=== PATIENT | male | born 1980 | race Hispanic/Latino ===

== ENCOUNTER 2020-05-02 11:52 | Inpatient (IN) | payer BC ==
[~2020-05-02] VITALS: Ht 175.3 cm; Wt 132.9 kg
--- OUTSIDE RECORDS SUMMARY | 2020-05-02 11:54 | XMS REPORT | Continuity of Care Document ---
Author Author FridgeVALENTINE Fridge Address Unknown Phone Unavailable Care Team Providers Care Antiquer Name Role Phone [employer] Unavailable Un available Problems Problem Status Onset Date Classification Date Reported Comments Source N/V ABD PAIN BYPASS HX MARCH 2011 Active 08/22/2012 [facility] Pain Active Problem 08/26/2012 [facility] History of - gastrointestinal tract by-p ass (context-dependent category) Active Prob bishop 06/08/2018 [facility] Medial epicondylitis of elbow joint (disorder) Active Problem 06/08/2018 [facility] Medications Medication Details Route Status Patient Instructions Ordering Provider Order Date Source Ibuprofen 0 Refill(s) Active 03/02/2018 [facility] heparin 5,000 unit, 1 mL, Rout e: SUB-Q, Drug form: INJ, Q12H, Dosing Weight 97.273, kg, Start date: 08/23/12 21:00:00, Duration: 30 day, Stop date: 09/22/12 9:00:00 SUB-Q No Longer Active Sana 08/24/2012 [facility] nter D5W 1/2NS + KCL 20mEq/L 1000ml (Premix) 1,000 mL 1,000 mL, Rate: 75 ml/hr, Infuse over: 13.3 hr, Route: IV, kg, Total Volume: 1,000, Start date: 08/23/12 17:00:00, Duration: 30 day, Stop date: 09/22/12 16:59:00 IV No Longer Active Sana [facility] Omnipaque 350mg/ml 150 mL, Rou te: IVP, Drug Form: SOLN, Dosing Weight 97.273, kg, ONCALL, STAT, Start date: 08/23/12 11:48:00, Duration: 1 doses or times, Dose = 2.2ml/kg, Max dose = 150mlDose = 2.2ml/kg, Max dose = 150ml IVP No Longer Active Samantha 08/23/2012 [facility] M.V.I. Adult 10 mL + Vitamin B1 100 mg + folic acid 1 mg + potassium chloride 20 mEq + Dextrose 5% 150 ml/hr, Route: IV, Daily, Start date: 08/23/12 6:00:00, Duration: 1 day, Stop date: 08/23/12 6:00:00 IV No Longer Active Samantha 08/23/2012 [facility] D5W 1/2NS + KCL 20mEq/L 1000ml (Premix) 1,000 mL 1,000 mL, Rate: 150 ml/hr, Infuse over: 6.7 hr, Route: IV, kg, Total Volume: 1,000, Start date: 08/23/12 2:40:00, Duration: 30 day, Stop date: 09/22/12 2:39:00 IV No Longer Active Sana [facility] Allergies, Adverse Reactions, Alerts Substance Category Reaction Severity Reaction type Status Date Reported Comments Source NKFA Assertion Drug allergy Active Medical Group Immunizations No Data Provided for This Section Results Order Name Results Value Reference Range Date Interpretation Comments Source CHEMISTRY B/C Ratio 16 6 - 25 08/24/2012 Normal [facility] CHEMISTRY Globulin 2.8 2.0 - 4.0 08/24/2012 Normal [facility] CHEMISTRY A/G Ratio 1.3 0.7 - 1.6 08/24/2012 Normal [facility] CHEMISTRY AGAP 13.0 10.0 - 20.0 08/24/2012 Normal [facility] CHEMISTRY Total Protein 6.4 6.4 - 8.4 08/24/2012 Normal [facility] CHEMISTRY AST 27 0 - 37 08/24/2012 Normal [facility] CHEMISTRY Creatinine Lvl 0.7 0.5 - 1.4 08/24/2012 Normal [facility] CHEMISTRY BUN 11 7 - 22 08/24/2012 Normal [facility] CHEMISTRY Glucose Lvl 46 70 - 99 08/24/2012 LOW <sup>1</sup>Interpretive Data: Adult ref erence range values reflect the clinical guidelines
of the [place] [employer]. [facility] CHEMISTRY CO2 29 24 - 32 08/24/2012 Normal [facility] CHEMISTRY Chloride Lvl 106 95 - 109 08/24/2012 Normal [facility] CHEMISTRY Bili Total 0.7 0.2 - 1.3 08/24/2012 Normal [facility] CHEMISTRY ALT 36 0 - 65 08/24/2012 Normal [facility] CHEMISTRY Alk Phos 47 39 - 136 08/24/2012 Normal [facility] CHEMISTRY Albumin Lvl 3.6 3.5 - 5.0 08/24/2012 Normal [facility] CHEMISTRY Potassium Lvl 5.0 3.5 - 5.1 08/24/2012 Normal [facility] CHEMISTRY Calcium Lvl 8.4 8.5 - 10.5 08/24/2012 LOW [facility] CHEMISTRY Sodium Lvl 143 135 - 145 08/24/2012 Normal [facility] CHEMISTRY Phosphorus 3.5 2.5 - 4.5 08/24/2012 Normal [facility] CHEMISTRY Magnesium Lvl 1.3 1.8 - 2.4 08/24/2012 LOW [facility] CHEMISTRY AGAP 13.0 10.0 - 20.0 08/24/2012 Normal [facility] CHEMISTRY BUN 11 7 - 22 08/24/2012 Normal [facility] CHEMISTRY Glucose Lvl 46 70 - 99 08/24/2012 LOW <sup>2</sup>Interpretive Data: Adult ref erence range values reflect the clinical guidelines
of the [place] [employer]. [facility] CHEMISTRY CO2 29 24 - 32 08/24/2012 Normal [facility] CHEMISTRY Chloride Lvl 106 95 - 109 08/24/2012 Normal [facility] CHEMISTRY Creatinine Lvl 0.7 0.5 - 1.4 08/24/2012 Normal [facility] CHEMISTRY Calcium Lvl 8.4 8.5 - 10.5 08/24/2012 LOW [facility] CHEMISTRY Sodium Lvl 143 135 - 145 08/24/2012 Normal [facility] CHEMISTRY Potassium Lvl 5.0 3.5 - 5.1 08/24/2012 Normal [facility] HEMATOLOGY Basophils # 0.0 0.0 - 0.2 08/24/2012 Normal [facility] HEMATOLOGY Lymphocytes 39.9 20.0 - 40.0 08/24/2012 Normal [facility] HEMATOLOGY Segs 48.4 45.0 - 75.0 08/24/2012 Normal [facility] HEMATOLOGY Eosinophils 3.0 0.0 - 4.0 08/24/2012 Normal [facility] HEMATOLOGY Monocytes 8.2 2.0 - 12.0 08/24/2012 Normal [facility] HEMATOLOGY Eosinophils # 0.2 0.0 - 0.5 08/24/2012 Normal [facility] HEMATOLOGY Segs-Bands # 2.8 1.5 - 8.1 08/24/2012 [facility] HEMATOLOGY Monocytes # 0.5 0.0 - 0.8 08/24/2012 [facility] HEMATOLOGY Lymphocytes # 2.3 1.0 - 5.5 08/24/2012 Normal [facility] HEMATOLOGY Basophils 0.5 0.0 - 1.0 08/24/2012 [facility] HEMATOLOGY MCH 32.2 27.0 - 31.0 08/24/2012 [facility] HEMATOLOGY Hct 39.0 42.0 - 54.0 08/24/2012 [facility] HEMATOLOGY MCV 96.3 80.0 - 94.0 08/24/2012 [facility] HEMATOLOGY RDW 13.6 11.5 - 14.5 08/24/2012 [facility] HEMATOLOGY MCHC 33.5 32.0 - 36.0 08/24/2012 [facility] HEMATOLOGY MPV 9.9 7.4 - 10.4 08/24/2012 [facility] HEMATOLOGY Platelet 157 133 - 450 08/24/2012 [facility] HEMATOLOGY Hgb 13.1 14.0 - 18.0 08/24/2012 [facility] HEMATOLOGY RBC 4.05 4.70 - 6.10 08/24/2012 [facility] HEMATOLOGY WBC 5.7 3.7 - 10.4 08/24/2012 [facility] CHEMISTRY B/C Ratio 19 6 - 25 08/23/2012 [facility] CHEMISTRY Globulin 2.6 2.0 - 4.0 08/23/2012 [facility] CHEMISTRY A/G Ratio 1.3 0.7 - 1.6 08/23/2012 [facility] CHEMISTRY AGAP 14.8 10.0 - 20.0 08/23/2012 [facility] CHEMISTRY AST 24 0 - 37 08/23/2012 [facility] CHEMISTRY ALT 32 0 - 65 08/23/2012 [facility] CHEMISTRY Albumin Lvl 3.3 3.5 - 5.0 08/23/2012 [facility] CHEMISTRY BUN 17 7 - 22 08/23/2012 Normal [facility] CHEMISTRY Creatinine Lvl 0.9 0.5 - 1.4 08/23/2012 Normal [facility] CHEMISTRY Alk Phos 46 39 - 136 08/23/2012 Normal [facility] CHEMISTRY Sodium Lvl 145 135 - 145 08/23/2012 Normal [facility] CHEMISTRY Glucose Lvl 90 70 - 99 08/23/2012 Normal <sup>3</sup>Interpretive Data: Adult ref erence range values reflect the clinical guidelines
of the [place] [employer]. [facility] CHEMISTRY CO2 25 24 - 32 08/23/2012 Normal [facility] CHEMISTRY Calcium Lvl 7.9 8.5 - 10.5 08/23/2012 LOW [facility] CHEMISTRY Bili Total 0.6 0.2 - 1.3 08/23/2012 Normal [facility] CHEMISTRY Total Protein 5.9 6.4 - 8.4 08/23/2012 LOW [facility] CHEMISTRY Potassium Lvl 3.8 3.5 - 5.1 08/23/2012 Normal [facility] CHEMISTRY Chloride Lvl 109 95 - 109 08/23/2012 Normal [facility] CHEMISTRY Phosphorus 4.0 2.5 - 4.5 08/23/2012 Normal [facility] CHEMISTRY Magnesium Lvl 1.8 1.8 - 2.4 08/23/2012 Normal [facility] HEMATOLOGY Eosinophils # 0.1 0.0 - 0.5 08/23/2012 Normal [facility] HEMATOLOGY Monocytes # 0.5 0.0 - 0.8 08/23/2012 Normal [facility] HEMATOLOGY Lymphocytes 36.1 20.0 - 40.0 08/23/2012 Normal [facility] HEMATOLOGY Eosinophils 2.4 0.0 - 4.0 08/23/2012 Normal [facility] HEMATOLOGY Lymphocytes # 1.9 1.0 - 5.5 08/23/2012 Normal [facility] HEMATOLOGY Segs-Bands # 2.8 1.5 - 8.1 08/23/2012 Normal [facility] HEMATOLOGY Basophils 0.6 0.0 - 1.0 08/23/2012 Normal [facility] HEMATOLOGY Basophils # 0.0 0.0 - 0.2 08/23/2012 Normal [facility] HEMATOLOGY Monocytes 9.2 2.0 - 12.0 08/23/2012 Normal [facility] HEMATOLOGY Segs 51.7 45.0 - 75.0 08/23/2012 Normal [facility] HEMATOLOGY MCH 32.3 27.0 - 31.0 08/23/2012 [facility] HEMATOLOGY MCV 94.8 80.0 - 94.0 08/23/2012 [facility] HEMATOLOGY MCHC 34.1 32.0 - 36.0 08/23/2012 Normal [facility] HEMATOLOGY Platelet 138 133 - 450 08/23/2012 Normal [facility] HEMATOLOGY MPV 9.5 7.4 - 10.4 08/23/2012 Normal [facility] HEMATOLOGY RDW 13.8 11.5 - 14.5 08/23/2012 Normal [facility] HEMATOLOGY Hct 35.5 42.0 - 54.0 08/23/2012 LOW [facility] HEMATOLOGY Hgb 12.1 14.0 - 18.0 08/23/2012 LOW [facility] HEMATOLOGY RBC 3.74 4.70 - 6.10 08/23/2012 LOW [facility] HEMATOLOGY WBC 5.4 3.7 - 10.4 08/23/2012 Normal [facility] URINALYSIS UA Ketones TR 08/23/2012 NA [facility] URINALYSIS UA Spec Grav 1.025 <=1.030 08/23/2012 Normal [facility] URINALYSIS UA pH 6.0 5.0 - 8.0 08/23/2012 Normal [facility] URINALYSIS UA Turbidity Clear (08/23/2012 01:30:00) Clear 08/23/2012 Normal [facility] URINALYSIS UA Protein Negat maryann mg/dL (08/23/2012 01:30:00) Negati ve 08/23/2012 Normal [facility] URINALYSIS UA Glucose Negat maryann mg/dL *NA* (08/23/2012 01:30:00) Negati ve 08/23/2012 [facility] URINALYSIS UA WBC 7 0 - 5 08/23/2012 [facility] URINALYSIS UA Mucus Few / LPF *NA* (08/23/2012 01:30:00) None S een 08/23/2012 NA [facility] URINALYSIS UA Sq Epi Moder ate /LPF *ABN* (08/23/2012 01:30:00) Few 08/23/2012 ABN [facility] URINALYSIS UA Leuk Est Trace *ABN* (08/23/2012 01:30:00) Negati ve 08/23/2012 ABN [facility] URINALYSIS UA Nitrite Negat maryann (08/23/2012 01:30:00) Negati ve 08/23/2012 Normal [facility] URINALYSIS UA Urobilinogen 2.0 0.1 - 1.0 08/23/2012 HI [facility] URINALYSIS UA Blood Negat maryann (08/23/2012 01:30:00) Negati ve 08/23/2012 Normal [facility] URINALYSIS UA Bili Negat maryann *NA* (08/23/2012 01:30:00) Negati ve 08/23/2012 NA [facility] URINALYSIS UA Color Yello w *NA* (08/23/2012 01:30:00) Yellow 08/23/2012 NA [facility] Microbiology Culture: Urine 08/23/2012 [facility] CHEMISTRY Magnesium Lvl 2.0 1.8 - 2.4 08/23/2012 Normal [facility] CHEMISTRY Phosphorus 3.8 2.5 - 4.5 08/23/2012 Normal [facility] CHEMISTRY A/G Ratio 1.4 0.7 - 1.6 08/23/2012 Normal [facility] CHEMISTRY Globulin 3.1 2.0 - 4.0 08/23/2012 Normal [facility] CHEMISTRY Bili Indirect 0.3 0.0 - 1.0 08/23/2012 Normal [facility] CHEMISTRY ALT 39 0 - 65 08/23/2012 Normal [facility] CHEMISTRY Alk Phos 64 39 - 136 08/23/2012 Normal [facility] CHEMISTRY Albumin Lvl 4.3 3.5 - 5.0 08/23/2012 Normal [facility] CHEMISTRY Bili Total 0.5 0.2 - 1.3 08/23/2012 Normal [facility] CHEMISTRY Bili Direct 0.2 0.0 - 0.3 08/23/2012 Normal [facility] CHEMISTRY AST 29 0 - 37 08/23/2012 Normal [facility] CHEMISTRY Total Protein 7.4 6.4 - 8.4 08/23/2012 Normal [facility] CHEMISTRY Lipase Lvl 198 73 - 393 08/23/2012 Normal [facility] CHEMISTRY Amylase Lvl 49 25 - 115 08/23/2012 Normal [facility] CHEMISTRY Bili Total 0.5 0.2 - 1.3 08/23/2012 Normal [facility] CHEMISTRY Total Protein 7.4 6.4 - 8.4 08/23/2012 Normal [facility] CHEMISTRY AST 29 0 - 37 08/23/2012 Normal [facility] CHEMISTRY ALT 39 0 - 65 08/23/2012 Normal [facility] CHEMISTRY Alk Phos 64 39 - 136 08/23/2012 Normal [facility] CHEMISTRY Albumin Lvl 4.3 3.5 - 5.0 08/23/2012 Normal [facility] CHEMISTRY A/G Ratio 1.4 0.7 - 1.6 08/23/2012 Normal [facility] CHEMISTRY Globulin 3.1 2.0 - 4.0 08/23/2012 Normal [facility] CHEMISTRY B/C Ratio 21 6 - 25 08/23/2012 Normal [facility] HEMATOLOGY Lymphocytes 25.3 20.0 - 40.0 08/23/2012 Normal [facility] HEMATOLOGY Monocytes 8.2 2.0 - 12.0 08/23/2012 [facility] HEMATOLOGY Eosinophils 1.4 0.0 - 4.0 08/23/2012 Normal [facility] HEMATOLOGY Segs 64.7 45.0 - 75.0 08/23/2012 [facility] HEMATOLOGY Segs-Bands # 5.0 1.5 - 8.1 08/23/2012 Normal [facility] HEMATOLOGY Lymphocytes # 1.9 1.0 - 5.5 08/23/2012 Normal [facility] HEMATOLOGY Monocytes # 0.6 0.0 - 0.8 08/23/2012 [facility] HEMATOLOGY Eosinophils # 0.1 0.0 - 0.5 08/23/2012 Normal [facility] HEMATOLOGY Basophils 0.4 0.0 - 1.0 08/23/2012 Normal [facility] HEMATOLOGY Basophils # 0.0 0.0 - 0.2 08/23/2012 [facility] HEMATOLOGY Platelet 157 133 - 450 08/23/2012 Normal [facility] HEMATOLOGY RDW 13.7 11.5 - 14.5 08/23/2012 Normal [facility] HEMATOLOGY MPV 9.8 7.4 - 10.4 08/23/2012 Normal [facility] HEMATOLOGY WBC 7.7 3.7 - 10.4 08/23/2012 Normal [facility] HEMATOLOGY Hct 39.5 42.0 - 54.0 08/23/2012 LOW [facility] HEMATOLOGY MCV 95.1 80.0 - 94.0 08/23/2012 [facility] HEMATOLOGY RBC 4.15 4.70 - 6.10 08/23/2012 LOW [facility] HEMATOLOGY Hgb 13.4 14.0 - 18.0 08/23/2012 LOW [facility] HEMATOLOGY MCH 32.2 27.0 - 31.0 08/23/2012 [facility] HEMATOLOGY MCHC 33.9 32.0 - 36.0 08/23/2012 Normal [facility] Pathology Reports No Data Provided for This Section Diagnostic Reports No Data Provided for This Section Consultation Notes No Data Provided for This Section Discharge Summaries No Data Provided for This Section History and Physicals No Data Provided for This Section Vital Signs Vital Sign Value Date Comments Source Height 175.26 cm 03/02/2018 [facility] Weight 138.665 03/02/2018 [facility] BMI Calculated 45.14 03/02/2018 [facility] Heart Rate 84 03/02/2018 [facility] Systolic (mm Hg) 128 03/02/2018 [facility] Diastolic (mm Hg) 83 03/02/2018 [facility] Temperature Oral (F) 98.2 F 03/02/2018 [facility] Heart Rate 49 08/24/2012 [facility] Respitory Rate 20 08/24/2012 [facility] Temperature Oral (F) 97.9 F 08/24/2012 [facility] Diastolic (mm Hg) 64 08/24/2012 [facility] Systolic (mm Hg) 122 08/24/2012 [facility] Diastolic (mm Hg) 60 08/24/2012 [facility] Systolic (mm Hg) 112 08/24/2012 [facility] Respitory Rate 18 08/24/2012 [facility] Temperature Oral (F) 98.0 F 08/24/2012 [facility] Heart Rate 54 08/24/2012 [facility] Systolic (mm Hg) 122 08/24/2012 [facility] Respitory Rate 20 08/24/2012 [facility] Diastolic (mm Hg) 70 08/24/2012 [facility] Temperature Oral (F) 98.0 F 08/24/2012 [facility] Heart Rate 54 08/24/2012 [facility] Weight 97.273 08/23/2012 [facility] Height 175.26 cm 08/23/2012 [facility] Encounters Location Location Details Encounter Type Encounter Number Reason For Visit Attending Provider ADM Date DC Date Status Source [facility] OU [id number] N/V ABD PAIN BYPA SS HX MARCH 2011 DEREK SAMANTHA 08/22/2012 08/24/2012 Active [facility] Outpatient [id number] JEFF AMEE 03/02/2018 Active [facility] Outpatient [id number] Jeff Amee 03/02/2018 03/03/2018 [facility] Procedures Procedure Code Date Perfomer Comments Source Gastric bypass operation 85172 003 03/01/2011 [facility] Assessment and Plan No Data Provided for This Section Plan of Care No Data Provided for This Section Social History Social History Date Source Social History TypeResponse Alcohol Current, Type Beer. Frequency: 1-2 times per month. Smoking Status Never smoker; Exposure to Tobacco Smoke None; Cigarette Smoking Last 365 Days No; Reg Smoking Cessation Counseling No entered on: 03/02/18 03/02/2018 [facility] Family History No Data Provided for This Section Advance Directives No Data Provided for This Section Functional Status No Data Provided for This Section
--- OUTSIDE RECORDS SUMMARY | 2020-05-02 11:55 | XMS REPORT | Continuity of Care Document ---
Author Author [facility] t Organization [facility] Address [address] [place] [address] [address] [place] [address] Phone Unavailable Care Team Providers Care Supervisor [employer] Name Role Phone FRANKO SALGUERO M.D. Attphys Unavailable London Kirk Attphys Problems Condition Name Condition Details Condition Category Status Onset Date Resolution Date Last Treatment Date Treating Clinician Comments Source N/V ABD PAIN BYPASS HX MARCH 2011 N/V ABD PAIN BYPASS HX MARCH 2011 Active 08/22/2012 [facility] Diagnosis Active 2012-08-22 00:00:00 2012-08-25 16:06:00 [facility] Morbid obesity Morbid obesity Problem Active [facility] Pain Pain Active Problem 08/26/2012 [facility] Problem Active 2012-08-26 08:45:46 [facility] History of - gastrointestinal tract by-pass (context-d ependent category) History of - gastrointestinal tract by-pass (context-dependent category) Active Problem 06/08/2018 [facility] Problem Active 2018-06-08 12:29:41 [facility] Medial epicondylitis of elbow joint (disorder) Medial epicondylitis of elbow joint (disorder) Active Problem 06/08/2018 [facility] Problem Active 2018-06-08 12:29:41 [facility] edical Group Allergies, Adverse Reactions, Alerts Allergy Name Allergy Type Status Severity Reaction(s) Onset Date Inacti ve Date Treating Clinician Comments Source NKFA NKFA Active [facility] Social History Social Habit Start Date Stop Date Quantity Comments Source Social History 2018-03-02 21:09:41 2018-03-02 21:09:41 [facility] Smoking Status Start Date Stop Date Source Never smoker [facility] Medications Ordered Medication Name Filled Medication Name Start Date Stop Da te Current Medication? Ordering Clinician Indication Dosage Frequency Signature (SIG) Comments Components Source Ibuprofen 2018-03-02 21:09:00 Yes 0 Refill(s ) [facility] heparin 2012-08-24 02:00:00 No Ludivina Rodgers Serrat os 5,000 unit, 1 mL, Route: SUB-Q, Drug form: INJ, Q12H, Dosing Weight 97.273, kg, Start date: 08/23/12 21:00:00, Duration: 30 day, Stop date: 09/22/12 9:00:00 [facility] D5W 1/2NS + KCL 20mEq/L 1000ml (Premix) 1,000 mL 2012-08-02 3 22:00:00 No Ludivina Ana Maria Sana 1,000 mL, Rate: 75 ml/hr, Infuse over: 13.3 hr, Route: IV, kg, Total Volume: 1,000, Start date: 08/23/12 17:00:00, Duration: 30 day, Stop date: 09/22/12 16:59:00 [facility] Omnipaque 350mg/ml 2012-08-23 16:48:00 No Franko gouldon 150 mL, Route: IVP, Drug Form: SOLN, Dosing Weight 97.273, kg, ONCALL, STAT, Start date: 08/23/12 11:48:00, Duration: 1 doses or times, Dose = 2.2ml/kg, Max dose = 150mlDose = 2.2ml/kg, Max dose = 150ml [facility] M.V.I. Adult 10 mL + Vitamin B1 100 mg + folic acid 1 mg + potassium chloride 20 mEq + Dextrose 5% 2012-08-23 11:00:00 No Franko Salguero 150 ml/hr, Route: IV, Daily, Start date: 08/23/12 6:00:00, Duration: 1 day, Stop date: 08/23/12 6:00:[address] [facility] D5W 1/2NS + KCL 20mEq/L 1000ml (Premix) 1,000 mL 2012-08-02 3 07:40:00 No Ludivina Ana Maria Sana 1,000 mL, Rate: 150 ml/hr, Infuse over: 6.7 hr, Route: IV, kg, Total Volume: 1,000, Start date: 08/23/12 2:40:00, Duration: 30 day, Stop date: 09/22/12 [facility]:39[facility] Vital Name Observation Time Observation Value Comments Source BP Systolic 2019-02-26 11:41:00 130 mm[Hg] Location: PRESLEY Andersen on: Sitting [facility] BP Diastolic 2019-02-26 11:41:00 85 mm[Hg] Location: PRESLEY Andersen on: Sitting [facility] Height 2019-02-26 11:41:00 69 [in_us] [facility] Weight 2019-02-26 11:41:00 301 [lb_av] [facility] Body Mass Index Calculated 2019-02-26 11:41:00 44.45 kg/m2 [facility] Temperature 2019-02-26 11:41:00 98 [degF] Method: Oral [facility] Heart Rate 2019-02-26 11:41:00 72 /min [facility] Height 2018-03-02 21:03:00 175.26 cm Medic al Group Weight 2018-03-02 21:03:00 [facility] al [facility] BMI Calculated 2018-03-02 21:03:00 Med ical Group Heart Rate 2018-03-02 21:03:00 Medic al Group Systolic (mm Hg) 2018-03-02 21:03:00 M edical Group Diastolic (mm Hg) 2018-03-02 21:03:00 [facility] Temperature Oral (F) 2018-03-02 21:03:00 98.2 F [facility] Heart Rate 2012-08-24 13:26:00 [facility] Respitory Rate 2012-08-24 13:26:00 Felipe [facility] Temperature Oral (F) 2012-08-24 13:26:00 97.9 F [facility] Diastolic (mm Hg) 2012-08-24 13:26:00 [facility] Systolic (mm Hg) 2012-08-24 13:26:00 [facility] Diastolic (mm Hg) 2012-08-24 08:54:00 [facility] Systolic (mm Hg) 2012-08-24 08:54:00 [facility] Respitory Rate 2012-08-24 08:54:00 Felipe [facility] Temperature Oral (F) 2012-08-24 08:54:00 98.0 F [facility] Heart Rate 2012-08-24 08:54:00 [facility] Systolic (mm Hg) 2012-08-24 04:54:[facility] 2012-08-24 04:54:00 [facility] Diastolic (mm Hg) 2012-08-24 04:54:00 [facility] Temperature Oral (F) 2012-08-24 04:54:00 98.0 F [facility] Heart Rate 2012-08-24 04:54:00 [facility] Weight 2012-08-23 04:39:00 [facility] Height 2012-08-23 04:39:00 175.26 cm [facility] Procedures Procedure Date / Time Performed Performing Clinician Sour e Gastric bypass operation 2011-03-01 05:00:00 Medical [facility] History of Solomon-en-Y gastric bypass [facility] Encounters Start Date/Time End Date/Time Encounter Type Admission Type Attendi [facility] Care Department Encounter ID Source 2019-02-26 10:45:00 2019-02-26 10:45:00 Appointment; FRANKO SALGUERO M.D. WILSON, TODD, M.D. [facility] [id number] [facility] 2018-03-02 21:00:00 2018-03-03 04:59:59 [facility] [id number] Medical Group 2018-03-02 16:00:00 2018-03-02 23:59:59 Outpatient Donny Kirks [facility] [id number] 2018-03-02 16:00:00 2018-03-02 16:00:00 Outpatient MHIEA LT [facility]ALT [id number] [facility] 2012-08-22 22:39:00 2012-08-24 10:55:00 OU MHIEALT [facility] [id number] [facility] Results Test Description Test Time Test Comments Results Result Comments Source CHEMISTRY 2012-08-24 18:53:[address] [facility] CHEMISTRY 2012-08-24 18:53:[address] [facility] CHEMISTRY 2012-08-24 18:53:[address] [facility] CHEMISTRY 2012-08-24 18:53:[address] [facility] CHEMISTRY 2012-08-24 18:53:[address] [facility] CHEMISTRY 2012-08-24 18:53:[address] [facility] CHEMISTRY 2012-08-24 18:53:[address] [facility] CHEMISTRY 2012-08-24 18:53:[address] [facility] CHEMISTRY 2012-08-24 18:53:[address] [facility] CHEMISTRY 2012-08-24 18:53:[address] [facility] CHEMISTRY 2012-08-24 18:53:[address] [facility] CHEMISTRY 2012-08-24 18:53:[address] [facility] CHEMISTRY 2012-08-24 18:53:[address] [facility] CHEMISTRY 2012-08-24 18:53:[address] [facility] CHEMISTRY 2012-08-24 18:53:[address] [facility] CHEMISTRY 2012-08-24 18:53:[address] [facility] CHEMISTRY 2012-08-24 18:53:[address] [facility] CHEMISTRY 2012-08-24 18:53:[address] [facility] CHEMISTRY 2012-08-24 18:53:[address] [facility] CHEMISTRY 2012-08-24 18:53:[address] [facility] CHEMISTRY 2012-08-24 18:53:[address] [facility] CHEMISTRY 2012-08-24 18:53:[address] [facility] CHEMISTRY 2012-08-24 18:53:[address] [facility] CHEMISTRY 2012-08-24 18:53:[address] [facility] CHEMISTRY 2012-08-24 18:53:[address] [facility] CHEMISTRY 2012-08-24 18:53:[address] [facility] CHEMISTRY 2012-08-24 18:53:[address] [facility] CHEMISTRY 2012-08-24 18:53:[address] [facility] CHEMISTRY 2012-08-24 18:53:[address] [facility] HEMATOLOGY 2012-08-24 18:53:[address] [facility] HEMATOLOGY 2012-08-24 18:53:[address] [facility] HEMATOLOGY 2012-08-24 18:53:[address] [facility] HEMATOLOGY 2012-08-24 18:53:[address] [facility] HEMATOLOGY 2012-08-24 18:53:[address] [facility] HEMATOLOGY 2012-08-24 18:53:[address] [facility] HEMATOLOGY 2012-08-24 18:53:[address] [facility] HEMATOLOGY 2012-08-24 18:53:[address] [facility] HEMATOLOGY 2012-08-24 18:53:[address] [facility] HEMATOLOGY 2012-08-24 18:53:[address] [facility] HEMATOLOGY 2012-08-24 18:53:00 Test Item MCH (test code = MCH) 32.2 pg 27.0-31.0 H [facility] HospitalFokpsnUQGXTATGEC4315-97-14 18:53:0039.0[facility] ZJPXNPAORD0451-62-10 18:53:0096.3[facility] TylerNvliroYZPXTLTVZX4575-16-45 18:53:[address] [place], [place] [address]HszpigHXEEGDDDMW6698-15-89 18:53:0033.5[facility] HospitalWujxksRXTAURSOMH2180-58-78 18:53:009.9[facility] 2012-08-24 18:53:08918LFCuero Regional HospitalQezfjpSFVKVVMQJB0752-26-41 18:53:[address] [place], [place] [address]TkswpzOYFTIKPDLJ7305-42-89 18:53:004.05[facility] ZTWGBNIWJU9456-90-97 18:53:005.7[facility] HospitalLrahaxUDWFSXLVY0440-52-47 10:21:0019[facility] HospitalPdzefxNSDWDKDIH2687-79-49 10:21:[address] [place], [place] [address]EvbkfzMNBCNIETP1654-68-99 10:21:001.[address] [place], [place] [address]XofugpMSSHYUVMF9822-97-23 10:21:0014.8[facility] HospitalGjrrnrQIHDYKHBB1500-01-46 10:21:0024[facility] HospitalGxtcdgVTDABDEIP2179-06-37 10:21:0032[facility] HospitalCHEMISTRY 2012-08-23 10:21:003.3M[facility] TylerSpyxogCUZUXBRXK1246-83-56 10:21:0017[facility] HospitalXwnsaeZUYLZZUJU2190-87-22 10:21:000.9[facility] KAUEOUHUE8210-29-57 10:21:0046[facility] HospitalCzkyojXLWSPJARP8141-69-23 10:21:89643JICuero Regional HospitalLkjgewFOAATFHXO2062-34-92 10:21:0090[facility] HospitalHicbugCZIAXHEOD3839-43-71 10:21:0025[facility] HospitalXynacnJPGCSCCTA9438-51-59 10:21:007.9[facility] HospitalNulqtzNKYAAWILB6821-42-85 10:21:000.6M[facility] TylerVdufkrLUPFADQJP7272-18-37 10:21:005.9[facility] HospitalCHEMISTRY 2012-08-23 10:21:003.8[facility] HospitalUflqeuXAVKIOUUV1254-05-61 10:21:55991PNCuero Regional HospitalXuvdfzWMTXOWNOE9946-08-48 10:21:004.0[facility] AKIZOMFMZ2657-79-54 10:21:001.8[facility] HospitalEgkzcbUNOJFOCEYP5647-30-06 10:21:[address] [place], [place] [address]TpenjxCANGUXDMFC3111-16-83 10:21:000.5[facility] HospitalJctftsYYZAOXXRVC1126-15-55 10:21:[address] [place], [place] [address]HEMATOLOGY 2012-08-23 10:21:002.4[facility] HospitalJcvdwdXJNJDGZDZP4933-82-71 10:21:001.9[facility] HospitalJjrjevQZWWJICXZZ0303-37-68 10:21:002.8[facility] WKBCUFUHLH4435-70-84 10:21:000.6M[facility] TylerVmkaspGYMLZEFFGM4847-89-20 10:21:000.0[facility] HospitalAaurozNYZHSHNFAN1656-99-74 10:21:[address] [place], [place] [address]MmyvzjIBXZVHCNMD4543-43-48 10:21:[address]51.[address] [place], [place] [address]HEMATOLOGY 2012-08-23 10:21:00* Test Item Value Reference Range Interpretation Comments MCH (test code = MCH) 32.3 pg 27.0-31.0 H [facility] HospitalPucqhwOCSJSAOLWE7834-24-18 10:21:0094.8[facility] HZUFAAJWES8584-79-12 10:21:0034.1M[facility] TylerJlygyvXPDVIITFRH2805-01-79 10:21:37760KTCuero Regional HospitalYnsotqTOKQVFLRIK8998-51-44 10:21:009.5[facility] HospitalCcxhueAZTMSGJWYT2344-26-30 10:21:0013.8[facility] HospitalHEMAT[facility]Y 2012-08-23 10:21:0035.5[facility] HospitalCvogbbBAAASREGHV1558-02-79 10:21:0012.1 [facility] HospitalSecxidJMECHCWXMS1387-86-71 10:21:003.74[facility] AVBPIWYJQZ4127-25-37 10:21:005.4[facility] HospitalAahthpSISOVKJLXL5863-80-35 06:30:001.025[facility] HospitalVltjutCTKDVSODLB2605-12-31 06:30:006.0[facility] HospitalHgjpcsYTGGZYNYZL4286-35-41 06:30:00Clear (08/23/2012 01:30:00) [facility] HospitalLyrgzmKRAKTDVZYC8216-87-70 06:30:00Negative mg/dL (08/23/2012 01:30:00) [facility] HospitalRqlidcPXPQQFWXBY5167-97-90 06:30:00Negative mg/dL *NA*(08/23/2012 01:30:00) [facility] 06:30:007 [facility]2012-09-23 06:30:00Few /LPF *NA*(08/23/2012 01:30:00) [facility]-23 06:30:00Moderate /LPF *ABN*(08/23/2012 01:30:00) [facility] HospitalGetguzESIYNBRTNA1197-63-00 06:30:00 Trace *ABN*(08/23/2012 01:30:00) [facility]-23 06:30:00Negative (08/23/2012 01:30:00) [facility] 2012-08-23 06:30:002.0[facility] HospitalJpqtwyPZRFHTEJWL8013-56-17 06:30:00 Negative (08/23/2012 01:30:00) [facility] HospitalErmajkWFHRZCFYUX0413-69-34 06:30:00Negative *NA*(08/23/2012 01:30:00) [facility] 2012-08-23 06:30:00Yellow *NA*(08/23/2012 01:30:00) [facility] PWJCURDPD3071-00-74 05:25:002.0[facility]2012-09-23 05:25:003.[address] [place], [place] [address]2012-09-23 05:25:001.[address] [place] [address]2012-09-23 05:25:003.[address] [place] [address] 2012-08-23 05:25:000.[address] [place], [place] [address]2012-09-23 05:25:0039[facility]2012-09-23 05:25:0064[facility] OBSJZXAWY6947-22-62 05:25:004.[address] [place], [place] [address]2012-09-23 05:25:000.5[facility]2012-09-23 05:25:000.[address] [place], [place] [address]2012-09-23 05:25:0029[facility] 2012-08-23 05:25:007.[address] [place] [address]2012-09-23 05:25:19897GUBaylor [facility]2012-09-23 05:25:0049[facility] OFOBPPEET8868-46-36 05:25:000.5[facility] 05:25:007.[address] [place], [place] [address]ISTRY2012-09-23 05:25:0029[facility]-09-23 05:25:0039[facility]2012-09-23 05:25:0064[facility]2012-09-23 05:25:004.[address] [place], [place] [address]2012-09-23 05:25:001.[address] [place] [address]2012-09-23 05:25:003.[address] [place], [place] 546522-09-23 05:25:0021[facility] HospitalChmldsQNWDBOUVCR7671-11-33 05:25:0025.3[facility] 2012-08-23 05:25:008.2M[facility] TylerLvuyvkQJBZBXNLET8522-07-95 05:25:001.4[facility] HospitalKhjvceWXVYOGXHQK6100-18-15 05:25:0064.7[facility] JTLEQHDPBI0294-82-93 05:25:005.0[facility] HospitalQpkfsvJFKNHOCLWE3054-17-21 05:25:001.9[facility] HospitalXuywtzXZQXBHRYLH5348-77-89 05:25:000.6[facility] TylerYlxjowXWYJTFZBZQ4859-60-70 05:25:000.1[facility] 2012-08-23 05:25:000.4[facility] HospitalZoohrbQYBPGNQLDS7542-81-54 05:25:000.0[facility] HospitalUcygumJJQBGZOSYI2644-20-65 05:25:90251IZ[facility] IHTEMCZSUF8936-66-46 05:25:0013.7[facility] HospitalNqdsgxKCSDUYWQJB9393-43-68 05:25:009.8[facility] HospitalTkfkcnBEWIIJBLEK8372-08-39 05:25:007.7[facility] HospitalPkwgpfDUVLJICYKW3352-59-09 05:25:0039.5[facility]HE[facility] 2012-08-23 05:25:0095.1[facility] TylerXajgpwGTKTWWALDW3788-77-38 05:25:004.15 [facility] HospitalBzufaaJCHVHLOZOU9321-30-73 05:25:0013.4[facility] GPXCTOOQWB5063-22-16 05:25:00* Test Item Value Reference Range Interpretation Comments MCH (test code = MCH) 32.2 pg 27.0-31.0 H [facility] HospitalVqqwhwXNYFGVMTCA8597-98-67 05:25:0033.9[facility]
--- OUTSIDE RECORDS SUMMARY | 2020-05-02 11:55 | XMS REPORT | Summary of Care ---
Author Author [facility] Address Unknown Phone Unavailable Encounter ELLI Kasper(JULIANA) [id number] Date(s): 03/02/18 - 03/02/[address], [address] [place] [address]- [phone] Discharge Disposition: Home or Self Care Attending Physician: Donny Kirk MD Vital Signs Most recent to 1 oldest [Reference Range]: Height 175.26 cm (03/02/18 4:03 PM) Temperature Oral 98.2 DegF [96.4-99.1 DegF] (03/02/18 4:03 PM) Blood Pressure 128/83 mmHg [90-140/60-90 mmHg] (03/02/18 4:03 PM) Peripheral Pulse 84 bpm Rate [60-100 bpm] (03/02/18 4:03 PM) Weight 138.665 kg (03/02/18 4:03 PM) Body Mass Index 45.14 m2 (03/02/18 4:03 PM) Problem List Condition Effective Dates Status Health Status Informan t History of gastric Active bypass(Confirmed) Medial epicondylitis Active of elbow(Confirmed) Allergies, Adverse Reactions, Alerts Substance Reaction Severity Status NKFA Active NKDA Active Medications ibuprofen 0 Refill(s) Start Date: 03/02/18 Status: Ordered Results No data available for this section Immunizations No data available for this section Procedures Procedure Date Related Diagnosis Body Site Status Gastric bypass operation 03/01/11 Completed Social History Social History Type Response Alcohol Current, Type Beer. Freque ncy: 1-2 times per month. Smoking Status Never smoker; Exposure to T obacco Smoke None; Cigarette Smoking Last 365 Days No; Reg Smoking Cessation Counseli ng No entered on: 03/02/18 Assessment and Plan No data available for this section
--- OUTSIDE RECORDS SUMMARY | 2020-05-02 11:55 | XMS REPORT | Summary of Care ---
Author VALENTINE Sandoval M.D. Organization Unknown Address Unknown Phone Unavailable Care Team Providers Care Nursery Attendant Name Role Phone FRANKO SALGUERO M.D. Unavailable Unavailable JADYN GAY MD Unavailable Unavailable Franko Salguero MD Unavailable Unavailable Unavailable Unavailable Functional Status Name Dates Details Functional status health issues are not documented Status: Name Dates Details Cognitive status health issues are not d ocumented Status: Problems Name Dates Details Morbid obesity (278.01, E66.01) Status: Active Medications Name Dates Details No Reported Medications Active Allergies and Adverse Reactions Name Dates Details No Known Drug Allergies (Allergy) Status : Active Procedures Procedure Dates Details History of Solomon-en-Y gastric bypass Comp leted Immunization Name Dates Details Immunizations not documented Social History Name Dates Details - Status: Name Dates Details Never smoker Vital Signs Date Test Result Details No Known Vitals to report Results Date Description Value Details Results not documented Plan of Care Name Dates Details Planned Observations Planned Goals not documented Interventions Provided Plan* 1. Refer to [facility] for assessment and treatment * 2. Bariatric labs Instructions Name Dates Details Instructions not documented Encounters Appointment; FRANKO SALGUERO M.D. Encounter Diagnosis: Problem not documented On: 26-Feb-2019 10:45
--- OUTSIDE RECORDS SUMMARY | 2020-05-02 11:55 | XMS REPORT | CCD ---
Author Author [facility] Address Unknown Phone Unavailable Care Team Providers Care [employer] Name Role Phone Johnnie Clifford PP Franko Salguero CP Allergies, Adverse Reactions, Alerts Substance Reaction Status NKDA Active Problem List Condition Effective Dates Status Pain Active Medications Medication Instructions Start Date End Date Status heparin 5,000 unit, 1 mL, Route: SUB-Q, 08/23/2012 012 Discontinued Drug form: INJ, Q12H, Dosing Weight 97.273, kg, Start date: 08/23/12 21:00:00, Duration: 30 day, Stop date: 09/22/12 9:00:00 M.V.I. Adult 10 mL + 150 ml/hr, Route: IV, Daily, Start 08/2308/23/2012 Completed Vitamin B1 100 mg + date: 08/23/12 6:00:00, Dur ation: 1 folic acid 1 mg + day, Stop date: 08/23/12 6: 00:00 potassium chloride 20 mEq + Dextrose 5% D5W 1/2NS + KCL 1,000 mL, Rate: 150 ml/hr, Infuse 08/23/2012 0 08/23/2012 Discontinued 20mEq/L 1000ml over: 6.7 hr, Route: IV, kg , Total (Premix) 1,000 mL Volume: 1,000, Start date: 08/23/12 2:40:00, Duration: 30 day, Stop date: 09/22/12 2:39:00 D5W 1/2NS + KCL 1,000 mL, Rate: 75 ml/hr, Infuse 08/23/2012 Discontinued 20mEq/L 1000ml over: 13.3 hr, Route: IV, k g, Total (Premix) 1,000 mL Volume: 1,000, Start date: 08/23/12 17:00:00, Duration: 30 day, Stop date: 09/22/12 16:59:00 Omnipaque 350mg/ml 150 mL, Route: IVP, Drug Form: 08/23/2012 0 08/23/2012 Completed SOLN, Dosing Weight 97.273, kg, ONCALL, STAT, Start date: 08/23/12 11:48:00, Duration: 1 doses or times, Dose = 2.2ml/kg, Max dose = 150ml Dose = 2.2ml/kg, Max dose = 150ml Vital Signs Most recent to oldest [Reference Range]: 1 2 3 Height 175.26 cm (08/22/2012 23:39:00) Temperature Oral [96.4-99.1 DegF] 97.9 DegF (08/24/2012 08:26:00) 98.0 DegF (08/24/2012 03:54:00) 98.0 DegF (08/23/2012 23:54:00) Systolic Blood Pressure [90-140 mmHg] 122 mmHg (08/24/2012 08:26:00) 112 mmHg (08/24/2012 03:54:00) 122 mmHg (08/23/2012 23:54:00) Diastolic Blood Pressure [60-90 mmHg] 64 mmHg (08/24/2012 08:26:00) 60 mmHg (08/24/2012 03:54:00) 70 mmHg (08/23/2012 23:54:00) Respiratory Rate [14-20 BRMIN] 20 BRMIN (08/24/2012 08:26:00) 18 BRMIN (08/24/2012 03:54:00) 20 BRMIN (08/23/2012 23:54:00) Peripheral Pulse Rate [60-100 bpm] 49 bpm *LOW* (08/24/2012 08:26:00) 54 bpm *LOW* (08/24/2012 03:54:00) 54 bpm *LOW* (08/23/2012 23:54:00) Weight 97.273 kg (08/22/2012 23:39:00) Results URINALYSIS Most recent to oldest [Reference Range]: 1 2 3 4 UA Turbidity [Clear] Clear (08/23/2012 01:30:00) UA Color [Yellow] Yellow *NA* (08/23/2012 01:30:00) UA pH [5.0-8.0] 6.0 (08/23/2012 01:30:00) UA Spec Grav [<=1.030] 1.025 (08/23/2012 01:30:00) UA Glucose [Negative mg/dL] Negative mg/dL *NA* (08/23/2012 01:30:00) UA Blood [Negative] Negative (08/23/2012 01:30:00) UA Ketones TR *NA* (08/23/2012 01:30:00) UA Protein [Negative mg/dL] Negative mg/dL (08/23/2012 01:30:00) UA Urobilinogen [0.1-1.0 mg/dL] 2.0 mg/dL *HI* (08/23/2012 01:30:00) UA Bili [Negative] Negative *NA* (08/23/2012 01:30:00) UA Leuk Est [Negative] Trace *ABN* (08/23/2012 01:30:00) UA Nitrite [Negative] Negative (08/23/2012 01:30:00) UA WBC [0-5 /HPF] 7 /HPF *HI* (08/23/2012 01:30:00) UA Sq Epi [Few /LPF] Moderate /LPF *ABN* (08/23/2012 01:30:00) UA Mucus [None Seen /LPF] Few /LPF *NA* (08/23/2012 01:30:00) CHEMISTRY Most recent to oldest [Reference Range]: 1 2 3 4 Sodium Lvl [135-145 mEq/L] 143 mEq/L (08/24/2012 13:53:00) 143 mEq/L (08/24/2012 13:53:00) 145 mEq/L (08/23/2012 05:21:00) Potassium Lvl [3.5-5.1 mEq/L] 5.0 mEq/L (08/24/2012 13:53:00) 5.0 mEq/L (08/24/2012 13:53:00) 3.8 mEq/L (08/23/2012 05:21:00) Chloride Lvl [95-109 mEq/L] 106 mEq/L (08/24/2012 13:53:00) 106 mEq/L (08/24/2012 13:53:00) 109 mEq/L (08/23/2012 05:21:00) CO2 [24-32 mEq/L] 29 mEq/L (08/24/2012 13:53:00) 29 mEq/L (08/24/2012 13:53:00) 25 mEq/L (08/23/2012 05:21:00) AGAP [10.0-20.0 mEq/L] 13.0 mEq/L (08/24/2012 13:53:00) 13.0 mEq/L (08/24/2012 13:53:00) 14.8 mEq/L (08/23/2012 05:21:00) Creatinine Lvl [0.5-1.4 mg/dL] 0.7 mg/dL (08/24/2012 13:53:00) 0.7 mg/dL (08/24/2012 13:53:00) 0.9 mg/dL (08/23/2012 05:21:00) BUN [7-22 mg/dL] 11 mg/dL (08/24/2012 13:53:00) 11 mg/dL (08/24/2012 13:53:00) 17 mg/dL (08/23/2012 05:21:00) B/C Ratio [6-25] 16 (08/24/2012 13:53:00) 19 (08/23/2012 05:21:00) 21 (08/23/2012 00:25:00) Glucose Lvl [70-99 mg/dL] 46 mg/dL 1 *LOW* (08/24/2012 13:53:00) 46 mg/dL 2 *LOW* (08/24/2012 13:53:00) 90 mg/dL 3 (08/23/2012 05:21:00) Total Protein [6.4-8.4 g/dL] 6.4 g/dL (08/24/2012 13:53:00) 5.9 g/dL *LOW* (08/23/2012 05:21:00) 7.4 g/dL (08/23/2012 00:25:00) 7.4 g/dL (08/23/2012 00:25:00) Albumin Lvl [3.5-5.0 g/dL] 3.6 g/dL (08/24/2012 13:53:00) 3.3 g/dL *LOW* (08/23/2012 05:21:00) 4.3 g/dL (08/23/2012 00:25:00) 4.3 g/dL (08/23/2012 00:25:00) Globulin [2.0-4.0 g/dL] 2.8 g/dL (08/24/2012 13:53:00) 2.6 g/dL (08/23/2012 05:21:00) 3.1 g/dL (08/23/2012 00:25:00) 3.1 g/dL (08/23/2012 00:25:00) A/G Ratio [0.7-1.6] 1.3 (08/24/2012 13:53:00) 1.3 (08/23/2012 05:21:00) 1.4 (08/23/2012 00:25:00) 1.4 (08/23/2012 00:25:00) Calcium Lvl [8.5-10.5 mg/dL] 8.4 mg/dL *LOW* (08/24/2012 13:53:00) 8.4 mg/dL *LOW* (08/24/2012 13:53:00) 7.9 mg/dL *LOW* (08/23/2012 05:21:00) Phosphorus [2.5-4.5 mg/dL] 3.5 mg/dL (08/24/2012 13:53:00) 4.0 mg/dL (08/23/2012 05:21:00) 3.8 mg/dL (08/23/2012 00:25:00) Magnesium Lvl [1.8-2.4 mg/dL] 1.3 mg/dL *LOW* (08/24/2012 13:53:00) 1.8 mg/dL (08/23/2012 05:21:00) 2.0 mg/dL (08/23/2012 00:25:00) ALT [0-65 unit/L] 36 unit/L (08/24/2012 13:53:00) 32 unit/L (08/23/2012 05:21:00) 39 unit/L (08/23/2012 00:25:00) 39 unit/L (08/23/2012 00:25:00) AST [0-37 unit/L] 27 unit/L (08/24/2012 13:53:00) 24 unit/L (08/23/2012 05:21:00) 29 unit/L (08/23/2012 00:25:00) 29 unit/L (08/23/2012 00:25:00) Alk Phos [39-136 unit/L] 47 unit/L (08/24/2012 13:53:00) 46 unit/L (08/23/2012 05:21:00) 64 unit/L (08/23/2012 00:25:00) 64 unit/L (08/23/2012 00:25:00) Bili Total [0.2-1.3 mg/dL] 0.7 mg/dL (08/24/2012 13:53:00) 0.6 mg/dL (08/23/2012 05:21:00) 0.5 mg/dL (08/23/2012 00:25:00) 0.5 mg/dL (08/23/2012 00:25:00) Bili Direct [0.0-0.3 mg/dL] 0.2 mg/dL (08/23/2012 00:25:00) Bili Indirect [0.0-1.0 mg/dL] 0.3 mg/dL (08/23/2012 00:25:00) Amylase Lvl [25-115 unit/L] 49 unit/L (08/23/2012 00:25:00) Lipase Lvl [73-393 unit/L] 198 unit/L (08/23/2012 00:25:00) 1Interpretive Data: Adult reference range values reflect the clinical guidelines of the [place] [employer]. 2Interpretive Data: Adult reference range values reflect the clinical guidelines of the [place] [employer]. 3Interpretive Data: Adult reference range values reflect the clinical guidelines of the [place] [employer]. HEMATOLOGY Most recent to oldest [Reference Range]: 1 2 3 4 WBC [3.7-10.4 K/CMM] 5.7 K/CMM (08/24/2012 13:53:00) 5.4 K/CMM (08/23/2012 05:21:00) 7.7 K/CMM (08/23/2012 00:25:00) RBC [4.70-6.10 M/CMM] 4.05 M/CMM *LOW* (08/24/2012 13:53:00) 3.74 M/CMM *LOW* (08/23/2012 05:21:00) 4.15 M/CMM *LOW* (08/23/2012 00:25:00) Hgb [14.0-18.0 g/dL] 13.1 g/dL *LOW* (08/24/2012 13:53:00) 12.1 g/dL *LOW* (08/23/2012 05:21:00) 13.4 g/dL *LOW* (08/23/2012 00:25:00) Hct [42.0-54.0 %] 39.0 % *LOW* (08/24/2012 13:53:00) 35.5 % *LOW* (08/23/2012 05:21:00) 39.5 % *LOW* (08/23/2012 00:25:00) MCV [80.0-94.0 fL] 96.3 fL *HI* (08/24/2012 13:53:00) 94.8 fL *HI* (08/23/2012 05:21:00) 95.1 fL *HI* (08/23/2012 00:25:00) MCH [27.0-31.0 pg] 32.2 pg *HI* (08/24/2012 13:53:00) 32.3 pg *HI* (08/23/2012 05:21:00) 32.2 pg *HI* (08/23/2012 00:25:00) MCHC [32.0-36.0 g/dL] 33.5 g/dL (08/24/2012 13:53:00) 34.1 g/dL (08/23/2012 05:21:00) 33.9 g/dL (08/23/2012 00:25:00) RDW [11.5-14.5 %] 13.6 % (08/24/2012 13:53:00) 13.8 % (08/23/2012 05:21:00) 13.7 % (08/23/2012 00:25:00) Platelet [133-450 K/CMM] 157 K/CMM (08/24/2012 13:53:00) 138 K/CMM (08/23/2012 05:21:00) 157 K/CMM (08/23/2012 00:25:00) MPV [7.4-10.4 fL] 9.9 fL (08/24/2012 13:53:00) 9.5 fL (08/23/2012 05:21:00) 9.8 fL (08/23/2012 00:25:00) Segs [45.0-75.0 %] 48.4 % (08/24/2012 13:53:00) 51.7 % (08/23/2012 05:21:00) 64.7 % (08/23/2012 00:25:00) Lymphocytes [20.0-40.0 %] 39.9 % (08/24/2012 13:53:00) 36.1 % (08/23/2012 05:21:00) 25.3 % (08/23/2012 00:25:00) Monocytes [2.0-12.0 %] 8.2 % (08/24/2012 13:53:00) 9.2 % (08/23/2012 05:21:00) 8.2 % (08/23/2012 00:25:00) Eosinophils [0.0-4.0 %] 3.0 % (08/24/2012 13:53:00) 2.4 % (08/23/2012 05:21:00) 1.4 % (08/23/2012 00:25:00) Basophils [0.0-1.0 %] 0.5 % (08/24/2012 13:53:00) 0.6 % (08/23/2012 05:21:00) 0.4 % (08/23/2012 00:25:00) Segs-Bands # [1.5-8.1 K/CMM] 2.8 K/CMM (08/24/2012 13:53:00) 2.8 K/CMM (08/23/2012 05:21:00) 5.0 K/CMM (08/23/2012 00:25:00) Lymphocytes # [1.0-5.5 K/CMM] 2.3 K/CMM (08/24/2012 13:53:00) 1.9 K/CMM (08/23/2012 05:21:00) 1.9 K/CMM (08/23/2012 00:25:00) Monocytes # [0.0-0.8 K/CMM] 0.5 K/CMM (08/24/2012 13:53:00) 0.5 K/CMM (08/23/2012 05:21:00) 0.6 K/CMM (08/23/2012 00:25:00) Eosinophils # [0.0-0.5 K/CMM] 0.2 K/CMM (08/24/2012 13:53:00) 0.1 K/CMM (08/23/2012 05:21:00) 0.1 K/CMM (08/23/2012 00:25:00) Basophils # [0.0-0.2 K/CMM] 0.0 K/CMM (08/24/2012 13:53:00) 0.0 K/CMM (08/23/2012 05:21:00) 0.0 K/CMM (08/23/2012 00:25:00) Microbiology Reports PROCEDURE:Culture: Urine STATUS: Auth (Verified) BODY SITE: COLLECTED DATE/TIME: 08/23/2012 01:30:00 SOURCE: Urine, Clean Catch FREE TEXT SOURCE: FINAL REPORTS Final Report >100,000 CFU/mL [facility]
[2020-05-02] MEDS ORDERED: ONDANSETRON HCL INJ 2MG/ML 2ML 2 MG/ML VIAL IV STA (12:11)
[2020-05-02] MEDS ORDERED: PANTOPRAZOLE 40 MG 10ML VIAL IV STA (12:11)
[2020-05-02] MEDS ORDERED: MORPHINE SULFATE INJ 4 MG/ML INJ 1ML IV STA (12:11)
[2020-05-02] MEDS ORDERED: SODIUM CHLORIDE 0.9% 1000ML 1,000 ML IV STA (12:11)
[2020-05-02 12:36] LABS: BASOPHILS % 0.4 % (0.0-1.0); EOSINOPHILS # (AUTO) 0.1 (0.0-0.4); EOSINOPHILS % 0.8 % (0.0-6.0); HEMATOCRIT 39.6 % (38.2-49.6); LYMPHOCYTES # (AUTO) 1.4 (1.0-3.2); LYMPHOCYTES % 18.2 % (18.0-39.1); MEAN CORPUSCULAR HEMOGLOBIN 31.9 pg (28-32); MEAN CORPUSCULAR HGB CONC 32.8 g/dL (31-35); MEAN CORPUSCULAR VOLUME 97.3 fL (81-99); MONOCYTES # (AUTO) 0.8 (0.2-0.8); MONOCYTES % 9.8 % (4.4-11.3); NEUTROPHILS # (AUTO) 5.4 (2.1-6.9); NEUTROPHILS % 70.5 % (38.7-80.0); PLATELET COUNT 149 x10e3/uL (140-360); RED BLOOD COUNT 4.07 x10e6/uL (4.3-5.7); RED CELL DISTRIBUTION WIDTH 13.2 % (11.7-14.4)
[2020-05-02 12:53] LABS: CLARITY,URINE CLEAR (CLEAR); COLOR,URINE YELLOW (YELLOW)
[2020-05-02 12:54] LABS: BILIRUBIN,URINE NEGATIVE (NEGATIVE); KETONES,URINE TRACE (NEGATIVE); LEUKOCYTE ESTERASE ,URINE NEGATIVE (NEGATIVE); NITRITE,URINE NEGATIVE (NEGATIVE); PROTEIN,URINE DIPSTICK NEGATIVE (NEGATIVE); URINE UROBILINOGEN 0.2 mg/dL (0.2 - 1)
[2020-05-02 13:08] LABS: INR 0.89; PROTHROMBIN TIME 12.6 seconds (11.9-14.5)
[2020-05-02 13:09] LABS: PARTIAL THROMBOPLASTIN TIME 27.8 seconds (23.8-35.5)
[2020-05-02 13:10] LABS: EPITHELIAL CELLS,URINE RARE /LPF
[2020-05-02 13:19] LABS: ALANINE AMINOTRANSFERASE 26 IU/L (0-55); ALBUMIN 3.8 g/dL (3.5-5.0); ALBUMIN/GLOBULIN RATIO 1.3 (0.8-2.0); ALKALINE PHOSPHATASE 44 IU/L (40-150); ANION GAP 11.9 mmol/L (8-16); BLOOD UREA NITROGEN 13 mg/dL (7-26); BUN/CREATININE RATIO 17 (6-25); CALCIUM 8.8 mg/dL (8.4-10.2); CARBON DIOXIDE 26 mmol/L (22-29); CHLORIDE 104 mmol/L (98-107); CREATINE KINASE 165 IU/L (30-200); CREATININE, SERUM 0.77 mg/dL (0.72-1.25); EST GLOMERULAR FILTRATION RATE > 60 ML/MIN (60-); GLUCOSE 91 mg/dL (74-118); LIPASE 33 U/L (8-78); POTASSIUM 3.9 mmol/L (3.5-5.1); SODIUM 138 mmol/L (136-145)
[2020-05-02] MEDS ORDERED: SODIUM CHLORIDE 0.9% 50ML 50 ML ONE (13:56)
[2020-05-02] MEDS ORDERED: IOPAMIDOL 370 MG/ML 200 ML INFUS..BTL INJ ONE (13:56)
--- NOTE | 2020-05-02 14:49 | Diagnostic Imaging Report ---
EXAMINATION: CHEST SINGLE (PORTABLE) INDICATION: Abdominal pain COMPARISON: None FINDINGS: LINES/TUBES:None LUNGS:The lungs are well-inflated. No focal consolidation or pulmonary edema. PLEURA:No pleural effusion or pneumothorax. MEDIASTINUM:The cardiomediastinal silhouette appears normal in size and shape. BONES/SOFT TISSUES:No acute osseous injury. ABDOMEN:No free air under the diaphragm. IMPRESSION: No focal pneumonia or pulmonary edema. Signed by: Tony Hill MD on 05/02/2020 2:46 PM
--- NOTE | 2020-05-02 15:02 | Diagnostic Imaging Report ---
EXAM: CT Abdomen and Pelvis WITH intravenous contrast INDICATION: Abdominal pain COMPARISON: None. TECHNIQUE: Abdomen and pelvis were scanned utilizing a multidetector helical scanner from the lung base to the pubic symphysis after administration of IV contrast. Coronal and sagittal reformations were obtained. Routine protocol was performed. Scan was performed during portal venous phase. IV CONTRAST: 100mL of Isovue 370 ORAL CONTRAST: None RADIATION DOSE: Total DLP: 874 mGy*cm Dose modulation, iterative reconstruction, and/or weight based adjustment of the mA/kV was utilized to reduce the radiation dose to as low as reasonably achievable. FINDINGS: LOWER THORAX: Normal. HEPATOBILIARY: No focal liver lesions. No biliary ductal dilation. Unremarkable gallbladder. SPLEEN: No splenomegaly. PANCREAS: Edematous pancreatic parenchyma with mild peripancreatic fat stranding. ADRENALS: No adrenal nodules. KIDNEYS/URETERS: No hydronephrosis, stones, or solid mass lesions. PELVIC ORGANS/BLADDER: Unremarkable. PERITONEUM / RETROPERITONEUM: No free air or fluid. LYMPH NODES: No lymphadenopathy. VESSELS: Unremarkable. GI TRACT: No abnormal bowel thickening. No bowel obstruction. Status post gastric bypass surgery. BONES AND SOFT TISSUES: No acute osseous injury. Grade 1 anterolisthesis at L4-5. No suspicious lytic or blastic lesions. IMPRESSION: Edematous pancreatic parenchyma with mild peripancreatic fat stranding can be seen in the setting of pancreatitis. Signed by: Tony Hill MD on 05/02/2020 2:59 PM
[2020-05-02] MEDS ORDERED: HYDROMORPHONE 1MG/1ML INJ IV STA (15:09)
--- OUTSIDE RECORDS SUMMARY | 2020-05-02 15:29 | XMS REPORT | Continuity of Care Document ---
Author Author [employer] Address Unknown Phone Unavailable Care Team Providers Care [employer] Operator Name Role Phone [email or web address] Information [employer] [place] Unavailable Un available Problems Problem Status Onset Date Classification Date Reported Comments Source N/V ABD PAIN BYPASS HX MARCH 2011 Active 08/22/2012 [facility] Pain Active Problem 08/26/2012 [facility] History of - gastrointestinal tract by-p ass (context-dependent category) Active Prob bishop 06/08/2018 [facility] Medial epicondylitis of elbow joint (disorder) Active Problem 06/08/2018 [facility] Medications Medication Details Route Status Patient Instructions Ordering Provider Order Date Source Ibuprofen 0 Refill(s) Active 03/02/2018 [facility] heparin 5,000 unit, 1 mL, Rout e: SUB-Q, Drug form: INJ, Q12H, Dosing Weight 97.273, kg, Start date: 08/23/12 21:00:00, Duration: 30 day, Stop date: 09/22/12 9:00:00 SUB-Q No Longer Active Sana 08/24/2012 [facility] nter D5W 1/2NS + KCL 20mEq/L 1000ml (Premix) 1,000 mL 1,000 mL, Rate: 75 ml/hr, Infuse over: 13.3 hr, Route: IV, kg, Total Volume: 1,000, Start date: 08/23/12 17:00:00, Duration: 30 day, Stop date: 09/22/12 16:59:00 IV No Longer Active Sana [facility] Omnipaque 350mg/ml 150 mL, Rou te: IVP, Drug Form: SOLN, Dosing Weight 97.273, kg, ONCALL, STAT, Start date: 08/23/12 11:48:00, Duration: 1 doses or times, Dose = 2.2ml/kg, Max dose = 150mlDose = 2.2ml/kg, Max dose = 150ml IVP No Longer Active Samantha 08/23/2012 [facility] M.V.I. Adult 10 mL + Vitamin B1 100 mg + folic acid 1 mg + potassium chloride 20 mEq + Dextrose 5% 150 ml/hr, Route: IV, Daily, Start date: 08/23/12 6:00:00, Duration: 1 day, Stop date: 08/23/12 6:00:00 IV No Longer Active Samantha 08/23/2012 [facility] D5W 1/2NS + KCL 20mEq/L 1000ml (Premix) 1,000 mL 1,000 mL, Rate: 150 ml/hr, Infuse over: 6.7 hr, Route: IV, kg, Total Volume: 1,000, Start date: 08/23/12 2:40:00, Duration: 30 day, Stop date: 09/22/12 2:39:00 IV No Longer Active Sana [facility] Allergies, Adverse Reactions, Alerts Substance Category Reaction Severity Reaction type Status Date Reported Comments Source NKFA Assertion Drug allergy Active Medical Group Immunizations No Data Provided for This Section Results Order Name Results Value Reference Range Date Interpretation Comments Source CHEMISTRY B/C Ratio 16 6 - 25 08/24/2012 Normal [facility] CHEMISTRY Globulin 2.8 2.0 - 4.0 08/24/2012 Normal [facility] CHEMISTRY A/G Ratio 1.3 0.7 - 1.6 08/24/2012 Normal [facility] CHEMISTRY AGAP 13.0 10.0 - 20.0 08/24/2012 Normal [facility] CHEMISTRY Total Protein 6.4 6.4 - 8.4 08/24/2012 Normal [facility] CHEMISTRY AST 27 0 - 37 08/24/2012 Normal [facility] CHEMISTRY Creatinine Lvl 0.7 0.5 - 1.4 08/24/2012 Normal [facility] CHEMISTRY BUN 11 7 - 22 08/24/2012 Normal [facility] CHEMISTRY Glucose Lvl 46 70 - 99 08/24/2012 LOW <sup>1</sup>Interpretive Data: Adult ref erence range values reflect the clinical guidelines
of the [place] [employer]. [facility] CHEMISTRY CO2 29 24 - 32 08/24/2012 Normal [facility] CHEMISTRY Chloride Lvl 106 95 - 109 08/24/2012 Normal [facility] CHEMISTRY Bili Total 0.7 0.2 - 1.3 08/24/2012 Normal [facility] CHEMISTRY ALT 36 0 - 65 08/24/2012 Normal [facility] CHEMISTRY Alk Phos 47 39 - 136 08/24/2012 Normal [facility] CHEMISTRY Albumin Lvl 3.6 3.5 - 5.0 08/24/2012 Normal [facility] CHEMISTRY Potassium Lvl 5.0 3.5 - 5.1 08/24/2012 Normal [facility] CHEMISTRY Calcium Lvl 8.4 8.5 - 10.5 08/24/2012 LOW [facility] CHEMISTRY Sodium Lvl 143 135 - 145 08/24/2012 Normal [facility] CHEMISTRY Phosphorus 3.5 2.5 - 4.5 08/24/2012 Normal [facility] CHEMISTRY Magnesium Lvl 1.3 1.8 - 2.4 08/24/2012 LOW [facility] CHEMISTRY AGAP 13.0 10.0 - 20.0 08/24/2012 Normal [facility] CHEMISTRY BUN 11 7 - 22 08/24/2012 Normal [facility] CHEMISTRY Glucose Lvl 46 70 - 99 08/24/2012 LOW <sup>2</sup>Interpretive Data: Adult ref erence range values reflect the clinical guidelines
of the [place] [employer]. [facility] CHEMISTRY CO2 29 24 - 32 08/24/2012 Normal [facility] CHEMISTRY Chloride Lvl 106 95 - 109 08/24/2012 Normal [facility] CHEMISTRY Creatinine Lvl 0.7 0.5 - 1.4 08/24/2012 Normal [facility] CHEMISTRY Calcium Lvl 8.4 8.5 - 10.5 08/24/2012 LOW [facility] CHEMISTRY Sodium Lvl 143 135 - 145 08/24/2012 Normal [facility] CHEMISTRY Potassium Lvl 5.0 3.5 - 5.1 08/24/2012 Normal [facility] HEMATOLOGY Basophils # 0.0 0.0 - 0.2 08/24/2012 Normal [facility] HEMATOLOGY Lymphocytes 39.9 20.0 - 40.0 08/24/2012 Normal [facility] HEMATOLOGY Segs 48.4 45.0 - 75.0 08/24/2012 Normal [facility] HEMATOLOGY Eosinophils 3.0 0.0 - 4.0 08/24/2012 Normal [facility] HEMATOLOGY Monocytes 8.2 2.0 - 12.0 08/24/2012 Normal [facility] HEMATOLOGY Eosinophils # 0.2 0.0 - 0.5 08/24/2012 Normal [facility] HEMATOLOGY Segs-Bands # 2.8 1.5 - 8.1 08/24/2012 [facility] HEMATOLOGY Monocytes # 0.5 0.0 - 0.8 08/24/2012 [facility] HEMATOLOGY Lymphocytes # 2.3 1.0 - 5.5 08/24/2012 Normal [facility] HEMATOLOGY Basophils 0.5 0.0 - 1.0 08/24/2012 [facility] HEMATOLOGY MCH 32.2 27.0 - 31.0 08/24/2012 [facility] HEMATOLOGY Hct 39.0 42.0 - 54.0 08/24/2012 [facility] HEMATOLOGY MCV 96.3 80.0 - 94.0 08/24/2012 [facility] HEMATOLOGY RDW 13.6 11.5 - 14.5 08/24/2012 [facility] HEMATOLOGY MCHC 33.5 32.0 - 36.0 08/24/2012 [facility] HEMATOLOGY MPV 9.9 7.4 - 10.4 08/24/2012 [facility] HEMATOLOGY Platelet 157 133 - 450 08/24/2012 [facility] HEMATOLOGY Hgb 13.1 14.0 - 18.0 08/24/2012 [facility] HEMATOLOGY RBC 4.05 4.70 - 6.10 08/24/2012 [facility] HEMATOLOGY WBC 5.7 3.7 - 10.4 08/24/2012 [facility] CHEMISTRY B/C Ratio 19 6 - 25 08/23/2012 [facility] CHEMISTRY Globulin 2.6 2.0 - 4.0 08/23/2012 [facility] CHEMISTRY A/G Ratio 1.3 0.7 - 1.6 08/23/2012 [facility] CHEMISTRY AGAP 14.8 10.0 - 20.0 08/23/2012 [facility] CHEMISTRY AST 24 0 - 37 08/23/2012 [facility] CHEMISTRY ALT 32 0 - 65 08/23/2012 [facility] CHEMISTRY Albumin Lvl 3.3 3.5 - 5.0 08/23/2012 [facility] CHEMISTRY BUN 17 7 - 22 08/23/2012 Normal [facility] CHEMISTRY Creatinine Lvl 0.9 0.5 - 1.4 08/23/2012 Normal [facility] CHEMISTRY Alk Phos 46 39 - 136 08/23/2012 Normal [facility] CHEMISTRY Sodium Lvl 145 135 - 145 08/23/2012 Normal [facility] CHEMISTRY Glucose Lvl 90 70 - 99 08/23/2012 Normal <sup>3</sup>Interpretive Data: Adult ref erence range values reflect the clinical guidelines
of the [place] [employer]. [facility] CHEMISTRY CO2 25 24 - 32 08/23/2012 Normal [facility] CHEMISTRY Calcium Lvl 7.9 8.5 - 10.5 08/23/2012 LOW [facility] CHEMISTRY Bili Total 0.6 0.2 - 1.3 08/23/2012 Normal [facility] CHEMISTRY Total Protein 5.9 6.4 - 8.4 08/23/2012 LOW [facility] CHEMISTRY Potassium Lvl 3.8 3.5 - 5.1 08/23/2012 Normal [facility] CHEMISTRY Chloride Lvl 109 95 - 109 08/23/2012 Normal [facility] CHEMISTRY Phosphorus 4.0 2.5 - 4.5 08/23/2012 Normal [facility] CHEMISTRY Magnesium Lvl 1.8 1.8 - 2.4 08/23/2012 Normal [facility] HEMATOLOGY Eosinophils # 0.1 0.0 - 0.5 08/23/2012 Normal [facility] HEMATOLOGY Monocytes # 0.5 0.0 - 0.8 08/23/2012 Normal [facility] HEMATOLOGY Lymphocytes 36.1 20.0 - 40.0 08/23/2012 Normal [facility] HEMATOLOGY Eosinophils 2.4 0.0 - 4.0 08/23/2012 Normal [facility] HEMATOLOGY Lymphocytes # 1.9 1.0 - 5.5 08/23/2012 Normal [facility] HEMATOLOGY Segs-Bands # 2.8 1.5 - 8.1 08/23/2012 Normal [facility] HEMATOLOGY Basophils 0.6 0.0 - 1.0 08/23/2012 Normal [facility] HEMATOLOGY Basophils # 0.0 0.0 - 0.2 08/23/2012 Normal [facility] HEMATOLOGY Monocytes 9.2 2.0 - 12.0 08/23/2012 Normal [facility] HEMATOLOGY Segs 51.7 45.0 - 75.0 08/23/2012 Normal [facility] HEMATOLOGY MCH 32.3 27.0 - 31.0 08/23/2012 [facility] HEMATOLOGY MCV 94.8 80.0 - 94.0 08/23/2012 [facility] HEMATOLOGY MCHC 34.1 32.0 - 36.0 08/23/2012 Normal [facility] HEMATOLOGY Platelet 138 133 - 450 08/23/2012 Normal [facility] HEMATOLOGY MPV 9.5 7.4 - 10.4 08/23/2012 Normal [facility] HEMATOLOGY RDW 13.8 11.5 - 14.5 08/23/2012 Normal [facility] HEMATOLOGY Hct 35.5 42.0 - 54.0 08/23/2012 LOW [facility] HEMATOLOGY Hgb 12.1 14.0 - 18.0 08/23/2012 LOW [facility] HEMATOLOGY RBC 3.74 4.70 - 6.10 08/23/2012 LOW [facility] HEMATOLOGY WBC 5.4 3.7 - 10.4 08/23/2012 Normal [facility] URINALYSIS UA Ketones TR 08/23/2012 NA [facility] URINALYSIS UA Spec Grav 1.025 <=1.030 08/23/2012 Normal [facility] URINALYSIS UA pH 6.0 5.0 - 8.0 08/23/2012 Normal [facility] URINALYSIS UA Turbidity Clear (08/23/2012 01:30:00) Clear 08/23/2012 Normal [facility] URINALYSIS UA Protein Negat maryann mg/dL (08/23/2012 01:30:00) Negati ve 08/23/2012 Normal [facility] URINALYSIS UA Glucose Negat maryann mg/dL *NA* (08/23/2012 01:30:00) Negati ve 08/23/2012 [facility] URINALYSIS UA WBC 7 0 - 5 08/23/2012 [facility] URINALYSIS UA Mucus Few / LPF *NA* (08/23/2012 01:30:00) None S een 08/23/2012 NA [facility] URINALYSIS UA Sq Epi Moder ate /LPF *ABN* (08/23/2012 01:30:00) Few 08/23/2012 ABN [facility] URINALYSIS UA Leuk Est Trace *ABN* (08/23/2012 01:30:00) Negati ve 08/23/2012 ABN [facility] URINALYSIS UA Nitrite Negat maryann (08/23/2012 01:30:00) Negati ve 08/23/2012 Normal [facility] URINALYSIS UA Urobilinogen 2.0 0.1 - 1.0 08/23/2012 HI [facility] URINALYSIS UA Blood Negat maryann (08/23/2012 01:30:00) Negati ve 08/23/2012 Normal [facility] URINALYSIS UA Bili Negat maryann *NA* (08/23/2012 01:30:00) Negati ve 08/23/2012 NA [facility] URINALYSIS UA Color Yello w *NA* (08/23/2012 01:30:00) Yellow 08/23/2012 NA [facility] Microbiology Culture: Urine 08/23/2012 [facility] CHEMISTRY Magnesium Lvl 2.0 1.8 - 2.4 08/23/2012 Normal [facility] CHEMISTRY Phosphorus 3.8 2.5 - 4.5 08/23/2012 Normal [facility] CHEMISTRY A/G Ratio 1.4 0.7 - 1.6 08/23/2012 Normal [facility] CHEMISTRY Globulin 3.1 2.0 - 4.0 08/23/2012 Normal [facility] CHEMISTRY Bili Indirect 0.3 0.0 - 1.0 08/23/2012 Normal [facility] CHEMISTRY ALT 39 0 - 65 08/23/2012 Normal [facility] CHEMISTRY Alk Phos 64 39 - 136 08/23/2012 Normal [facility] CHEMISTRY Albumin Lvl 4.3 3.5 - 5.0 08/23/2012 Normal [facility] CHEMISTRY Bili Total 0.5 0.2 - 1.3 08/23/2012 Normal [facility] CHEMISTRY Bili Direct 0.2 0.0 - 0.3 08/23/2012 Normal [facility] CHEMISTRY AST 29 0 - 37 08/23/2012 Normal [facility] CHEMISTRY Total Protein 7.4 6.4 - 8.4 08/23/2012 Normal [facility] CHEMISTRY Lipase Lvl 198 73 - 393 08/23/2012 Normal [facility] CHEMISTRY Amylase Lvl 49 25 - 115 08/23/2012 Normal [facility] CHEMISTRY Bili Total 0.5 0.2 - 1.3 08/23/2012 Normal [facility] CHEMISTRY Total Protein 7.4 6.4 - 8.4 08/23/2012 Normal [facility] CHEMISTRY AST 29 0 - 37 08/23/2012 Normal [facility] CHEMISTRY ALT 39 0 - 65 08/23/2012 Normal [facility] CHEMISTRY Alk Phos 64 39 - 136 08/23/2012 Normal [facility] CHEMISTRY Albumin Lvl 4.3 3.5 - 5.0 08/23/2012 Normal [facility] CHEMISTRY A/G Ratio 1.4 0.7 - 1.6 08/23/2012 Normal [facility] CHEMISTRY Globulin 3.1 2.0 - 4.0 08/23/2012 Normal [facility] CHEMISTRY B/C Ratio 21 6 - 25 08/23/2012 Normal [facility] HEMATOLOGY Lymphocytes 25.3 20.0 - 40.0 08/23/2012 Normal [facility] HEMATOLOGY Monocytes 8.2 2.0 - 12.0 08/23/2012 [facility] HEMATOLOGY Eosinophils 1.4 0.0 - 4.0 08/23/2012 Normal [facility] HEMATOLOGY Segs 64.7 45.0 - 75.0 08/23/2012 [facility] HEMATOLOGY Segs-Bands # 5.0 1.5 - 8.1 08/23/2012 Normal [facility] HEMATOLOGY Lymphocytes # 1.9 1.0 - 5.5 08/23/2012 Normal [facility] HEMATOLOGY Monocytes # 0.6 0.0 - 0.8 08/23/2012 [facility] HEMATOLOGY Eosinophils # 0.1 0.0 - 0.5 08/23/2012 Normal [facility] HEMATOLOGY Basophils 0.4 0.0 - 1.0 08/23/2012 Normal [facility] HEMATOLOGY Basophils # 0.0 0.0 - 0.2 08/23/2012 [facility] HEMATOLOGY Platelet 157 133 - 450 08/23/2012 Normal [facility] HEMATOLOGY RDW 13.7 11.5 - 14.5 08/23/2012 Normal [facility] HEMATOLOGY MPV 9.8 7.4 - 10.4 08/23/2012 Normal [facility] HEMATOLOGY WBC 7.7 3.7 - 10.4 08/23/2012 Normal [facility] HEMATOLOGY Hct 39.5 42.0 - 54.0 08/23/2012 LOW [facility] HEMATOLOGY MCV 95.1 80.0 - 94.0 08/23/2012 [facility] HEMATOLOGY RBC 4.15 4.70 - 6.10 08/23/2012 LOW [facility] HEMATOLOGY Hgb 13.4 14.0 - 18.0 08/23/2012 LOW [facility] HEMATOLOGY MCH 32.2 27.0 - 31.0 08/23/2012 [facility] HEMATOLOGY MCHC 33.9 32.0 - 36.0 08/23/2012 Normal [facility] Pathology Reports No Data Provided for This Section Diagnostic Reports No Data Provided for This Section Consultation Notes No Data Provided for This Section Discharge Summaries No Data Provided for This Section History and Physicals No Data Provided for This Section Vital Signs Vital Sign Value Date Comments Source Height 175.26 cm 03/02/2018 [facility] Weight 138.665 03/02/2018 [facility] BMI Calculated 45.14 03/02/2018 [facility] Heart Rate 84 03/02/2018 [facility] Systolic (mm Hg) 128 03/02/2018 [facility] Diastolic (mm Hg) 83 03/02/2018 [facility] Temperature Oral (F) 98.2 F 03/02/2018 [facility] Heart Rate 49 08/24/2012 [facility] Respitory Rate 20 08/24/2012 [facility] Temperature Oral (F) 97.9 F 08/24/2012 [facility] Diastolic (mm Hg) 64 08/24/2012 [facility] Systolic (mm Hg) 122 08/24/2012 [facility] Diastolic (mm Hg) 60 08/24/2012 [facility] Systolic (mm Hg) 112 08/24/2012 [facility] Respitory Rate 18 08/24/2012 [facility] Temperature Oral (F) 98.0 F 08/24/2012 [facility] Heart Rate 54 08/24/2012 [facility] Systolic (mm Hg) 122 08/24/2012 [facility] Respitory Rate 20 08/24/2012 [facility] Diastolic (mm Hg) 70 08/24/2012 [facility] Temperature Oral (F) 98.0 F 08/24/2012 [facility] Heart Rate 54 08/24/2012 [facility] Weight 97.273 08/23/2012 [facility] Height 175.26 cm 08/23/2012 [facility] Encounters Location Location Details Encounter Type Encounter Number Reason For Visit Attending Provider ADM Date DC Date Status Source [facility] OU [id number] N/V ABD PAIN BYPA SS HX MARCH 2011 DEREK SAMANTHA 08/22/2012 08/24/2012 Active [facility] Outpatient [id number] JEFF AMEE 03/02/2018 Active [facility] Primary Care [facility] Outpatient [id number] Jeff Amee 03/02/2018 03/03/2018 [facility] Procedures Procedure Code Date Perfomer Comments Source Gastric bypass operation 23032 [id number] 03/01/2011 [facility] Assessment and Plan No Data Provided for This Section Plan of Care No Data Provided for This Section Social History Social History Date Source Social History TypeResponse Alcohol Current, Type Beer. Frequency: 1-2 times per month. Smoking Status Never smoker; Exposure to Tobacco Smoke None; Cigarette Smoking Last 365 Days No; Reg Smoking Cessation Counseling No entered on: 03/02/18 03/02/2018 [facility] Family History No Data Provided for This Section Advance Directives No Data Provided for This Section Functional Status No Data Provided for This Section
[2020-05-02] MEDS ORDERED: MORPHINE SULFATE 2 MG/ML SYR 1ML IV PRN (15:30)
--- NOTE | 2020-05-02 15:30 | Emergency Department Note ---
History of Present Illnes History of Present Illness Chief Complaint: Abdominal Complaints History of Present Illness This is a 40 year old male PATIENT IN FROM HOME WITH COMPLAINTS OF RIGHT ABDOMINAL PAIN SINCE EARLY YESTERDAY MORNING; DENIES NAUSEA OR VOMITING. STATES DRANK A BOTTLE OF MAG CITRATE BECAUSE HE THOUGHT HE MAY BE CONSTIPATED. 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 Any updates have been documented here. Past Medical History Recent Fever: No Clinical Suspicion of Infectio: No New/Unexplained Change in Ment: No Past Medical History: None Past Surgical History: Bariatric Surgery Other Surgery: GASTRIC BYPASS IN 2010 Social History Smoking Cessation: Never Smoker Counseling Performed: No Alcohol Use: None Any Illegal Drug Use: No TB Exposure/Symptoms: No Physically hurt or threatened: No Family History Family history of heart diseas: No Other Any Pre-Existing Lines (PICC,: No Is patient up to date on immun: Yes Last Flu: NOT UTD Last Pneumovax: N/A Review of Systems Review of Systems Constitutional: no symptoms EENTM: no symptoms Cardiovascular: no symptoms Respiratory: no symptoms Gastrointestinal: abdominal pain Genitourinary: no symptoms Musculoskeletal: no symptoms Neurological: no symptoms Psychological: no symptoms Endocrine: no symptoms Hematological/Lymphatic: no symptoms Review of other systems All other systems reviewed and negative. Physical Exam Related Data Allergies: Coded Allergies: No Known Allergies (Unverified , 05/02/20) Triage Vital Signs Vital Signs Date Time Temp Pulse Resp B/P (MAP) Pulse Ox O2 Delivery O2 Flow Rate FiO2 05/02/20 12:06 99.3 73 18 153/88 100 Physical Exam CONSTITUTIONAL Constitutional: well-developed, well-nourished HENT HENT: normocephalic, atraumatic, oropharynx clear/moist, nose normal HENT L/R: left ext ear normal, right ext ear normal EYES Eyes: PERRL, conjunctivae normal NECK Neck: ROM normal PULMONARY Pulmonary: effort normal, breath sounds normal CARDIOVASCULAR Cardiovascular: regular rhythm, heart sounds normal, capillary refill normal, normal rate GASTROINTESTINAL Abdominal: soft, bowel sounds normal, tender (MOD RUQ/SAMSON); guarding, rebound GENITOURINARY Genitourinary: exam deferred SKIN Skin: warm, dry MUSCULOSKELETAL Musculoskeletal: ROM normal NEUROLOGICAL Neurological: alert, oriented x 3, no gross motor or sensory deficits PSYCHOLOGICAL Psychological: mood/affect normal, judgement normal Results Laboratory Result Diagram: 05/02/20 1215 05/02/20 1215 Laboratory Laboratory Tests Test 05/02/20 12:15 White Blood Count 7.64 x10e3/uL (4.8-10.8) Red Blood Count 4.07 x10e6/uL (4.3-5.7) Hemoglobin 13.0 g/dL (14.0-18.0) Hematocrit 39.6 % (38.2-49.6) Mean Corpuscular Volume 97.3 fL (81-99) Mean Corpuscular Hemoglobin 31.9 pg (28-32) Mean Corpuscular Hemoglobin Concent 32.8 g/dL (31-35) Red Cell Distribution Width 13.2 % (11.7-14.4) Platelet Count 149 x10e3/uL (140-360) Neutrophils (%) (Auto) 70.5 % (38.7-80.0) Lymphocytes (%) (Auto) 18.2 % (18.0-39.1) Monocytes (%) (Auto) 9.8 % (4.4-11.3) Eosinophils (%) (Auto) 0.8 % (0.0-6.0) Basophils (%) (Auto) 0.4 % (0.0-1.0) Neutrophils # (Auto) 5.4 (2.1-6.9) Lymphocytes # (Auto) 1.4 (1.0-3.2) Monocytes # (Auto) 0.8 (0.2-0.8) Eosinophils # (Auto) 0.1 (0.0-0.4) Basophils # (Auto) 0.0 (0.0-0.1) Absolute Immature Granulocyte (auto 0.02 x10e3/uL (0-0.1) Prothrombin Time 12.6 seconds (11.9-14.5) Prothromb Time International Ratio 0.89 Activated Partial Thromboplast Time 27.8 seconds (23.8-35.5) Urine Color Yellow (YELLOW) Urine Clarity Clear (CLEAR) Urine pH 5.5 (5 - 7) Urine Specific Burney 1.025 (1.010-1.025) Urine Protein Negative (NEGATIVE) Urine Glucose (UA) Negative (NEGATIVE) Urine Ketones Trace (NEGATIVE) Urine Blood Trace (NEGATIVE) Urine Nitrite Negative (NEGATIVE) Urine Bilirubin Negative (NEGATIVE) Urine Urobilinogen 0.2 mg/dL (0.2 - 1) Urine Leukocyte Esterase Negative (NEGATIVE) Urine RBC None /HPF (0-5) Urine WBC None /HPF (0-5) Urine Epithelial Cells Rare /LPF (NONE) Urine Bacteria None /HPF (NONE) Sodium Level 138 mmol/L (136-145) Potassium Level 3.9 mmol/L (3.5-5.1) Chloride Level 104 mmol/L (98-107) Carbon Dioxide Level 26 mmol/L (22-29) Anion Gap 11.9 mmol/L (8-16) Blood Urea Nitrogen 13 mg/dL (7-26) Creatinine 0.77 mg/dL (0.72-1.25) Estimat Glomerular Filtration Rate > 60 ML/MIN (60-) BUN/Creatinine Ratio 17 (6-25) Glucose Level 91 mg/dL (74-118) Calcium Level 8.8 mg/dL (8.4-10.2) Total Bilirubin 0.7 mg/dL (0.2-1.2) Aspartate Amino Transf (AST/SGOT) 31 IU/L (5-34) Alanine Aminotransferase (ALT/SGPT) 26 IU/L (0-55) Alkaline Phosphatase 44 IU/L (40-150) Creatine Kinase 165 IU/L (30-200) Creatine Kinase MB 1.40 ng/mL (0-5.0) Troponin I 0.011 ng/mL (0-0.300) Total Protein 6.8 g/dL (6.5-8.1) Albumin 3.8 g/dL (3.5-5.0) Globulin 3.0 g/dL (2.3-3.5) Albumin/Globulin Ratio 1.3 (0.8-2.0) Lipase 33 U/L (8-78) Lab results reviewed: Yes Imaging Imaging results reviewed: Yes Impressions EXAM: CT Abdomen and Pelvis WITH intravenous contrast INDICATION: Abdominal pain COMPARISON: None. TECHNIQUE: Abdomen and pelvis were scanned utilizing a multidetector helical scanner from the lung base to the pubic symphysis after administration of IV contrast. Coronal and sagittal reformations were obtained. Routine protocol was performed. Scan was performed during portal venous phase. IV CONTRAST: 100mL of Isovue 370 ORAL CONTRAST: None RADIATION DOSE: Total DLP: 874 mGy*cm Dose modulation, iterative reconstruction, and/or weight based adjustment of the mA/kV was utilized to reduce the radiation dose to as low as reasonably achievable. FINDINGS: LOWER THORAX: Normal. HEPATOBILIARY: No focal liver lesions. No biliary ductal dilation. Unremarkable gallbladder. SPLEEN: No splenomegaly. PANCREAS: Edematous pancreatic parenchyma with mild peripancreatic fat stranding. ADRENALS: No adrenal nodules. KIDNEYS/URETERS: No hydronephrosis, stones, or solid mass lesions. PELVIC ORGANS/BLADDER: Unremarkable. PERITONEUM / RETROPERITONEUM: No free air or fluid. LYMPH NODES: No lymphadenopathy. VESSELS: Unremarkable. GI TRACT: No abnormal bowel thickening. No bowel obstruction. Status post gastric bypass surgery. BONES AND SOFT TISSUES: No acute osseous injury. Grade 1 anterolisthesis at L4-5. No suspicious lytic or blastic lesions. IMPRESSION: Edematous pancreatic parenchyma with mild peripancreatic fat stranding can be seen in the setting of pancreatitis. Signed by: Tony Hill MD on 05/02/2020 2:59 PM XAMINATION: CHEST SINGLE (PORTABLE) INDICATION: Abdominal pain COMPARISON: None FINDINGS: LINES/TUBES:None LUNGS:The lungs are well-inflated. No focal consolidation or pulmonary edema. PLEURA:No pleural effusion or pneumothorax. MEDIASTINUM:The cardiomediastinal silhouette appears normal in size and shape. BONES/SOFT TISSUES:No acute osseous injury. ABDOMEN:No free air under the diaphragm. IMPRESSION: No focal pneumonia or pulmonary edema. Signed by: Tony Hill MD on 05/02/2020 2:46 PM Diagnostics Tests Diagnostic test(s) reviewed: Yes Critical Care Time Subsequent provider I assumed direction of critical care for this patient from another provider of my specialty. Assessment & Plan Reassessment Reassessment ABD PAIN SAMSON/RUQ - CHECK CBC, CHEM'S, LIPASE, CT ABD/PELVIS, UA - R/O PANCREATITIS, CHOLELITHIASIS, CHOLECYSTITIS, APPENDICITIS Assessment & Plan Final Impression: (1) UPPER ABDOMINAL PAIN, UNSPECIFIED Assessment & Plan ADMIT, SPOKE WITH DR GAY Last Vital Signs Date Time Temp Pulse Resp B/P (MAP) Pulse Ox O2 Delivery O2 Flow Rate FiO2 05/02/20 12:40 60 18 138/78 100 05/02/20 12:06 99.3 Medications in the ED Pantoprazole Sodium 40 mg ONCE STAT IV Last administered on 05/02/20at 12:36; Admin Dose 40 MG; Start 05/02/20 at 12:11; Stop 05/02/20 at 12:21; Status DC Morphine Sulfate 4 mg ONCE STAT IV Last administered on 05/02/20at 12:34; Admin Dose 4 MG; Start 05/02/20 at 12:11; Stop 05/02/20 at 12:20; Status DC Ondansetron HCl 4 mg ONCE STAT IV Last administered on 05/02/20at 12:32; Admin Dose 4 MG; Start 05/02/20 at 12:11; Stop 05/02/20 at 12:21; Status DC Sodium Chloride 1,000 ml @ 0 mls/hr Q0M STAT IV Last administered on 05/02/20at 12:30; Admin Dose 999 MLS/HR; Start 05/02/20 at 12:11; Stop 05/02/20 at 12:15; Status DC Sodium Chloride 50 ml @ ud STK-MED ONCE .ROUTE ; Start 05/02/20 at 13:56; Stop 05/02/20 at 13:51; Status DC Iopamidol 74,000 mg STK-MED ONCE INJ ; Start 05/02/20 at 13:56; Stop 05/02/20 at 13:51; Status DC Hydromorphone HCl 1 mg NOW STAT IV ; Start 05/02/20 at 15:09; Stop 05/02/20 at 15:13; Status DC ZULEYMA HENSLEY MD May 02, 2020 15:30
--- OUTSIDE RECORDS SUMMARY | 2020-05-02 15:30 | XMS REPORT | Continuity of Care Document ---
Author Author [facility] t Organization [facility] Address [address] [place] [address] Phone Unavailable Care Team Providers Care Dance Hall Hostess Name Role Phone Arely HENSLEY Attphys Unavailable FRANKO SALGUERO M.D. Attphys Unavailable London Kirk Attphys Problems Condition Name Condition Details Condition Category Status Onset Date Resolution Date Last Treatment Date Treating Clinician Comments Source N/V ABD PAIN BYPASS HX MARCH 2011 N/V ABD PAIN BYPASS HX MARCH 2011 Active 08/22/2012 [facility] Diagnosis Active 2012-08-22 00:00:00 2012-08-25 16:06:00 [facility] Morbid obesity Morbid obesity Problem Active [facility] Pain Pain Active Problem 08/26/2012 [facility] Problem Active 2012-08-26 08:45:46 [facility] History of - gastrointestinal tract by-pass (context-d ependent category) History of - gastrointestinal tract by-pass (context-dependent category) Active Problem 06/08/2018 [facility] Problem Active 2018-06-08 12:29:41 [facility] Medial epicondylitis of elbow joint (disorder) Medial epicondylitis of elbow joint (disorder) Active Problem 06/08/2018 [facility] Problem Active 2018-06-08 12:29:41 [facility] edical Group Allergies, Adverse Reactions, Alerts Allergy Name Allergy Type Status Severity Reaction(s) Onset Date Inacti ve Date Treating Clinician Comments Source NKFA NKFA Active [facility] Social History Social Habit Start Date Stop Date Quantity Comments Source Social History 2018-03-02 21:09:41 2018-03-02 21:09:41 [facility] Smoking Status Start Date Stop Date Source Never smoker [facility] Medications Ordered Medication Name Filled Medication Name Start Date Stop Da te Current Medication? Ordering Clinician Indication Dosage Frequency Signature (SIG) Comments Components Source Ibuprofen 2018-03-02 21:09:00 Yes 0 Refill(s ) [facility] heparin 2012-08-24 02:00:00 No Ludivina Floreselle Serrat os 5,000 unit, 1 mL, Route: SUB-Q, Drug form: INJ, Q12H, Dosing Weight 97.273, kg, Start date: 08/23/12 21:00:00, Duration: 30 day, Stop date: 09/22/12 9:00:00 [facility] D5W 1/2NS + KCL 20mEq/L 1000ml (Premix) 1,000 mL 2012-08-02 3 22:00:00 No Ludivina Ana Maria Sana 1,000 mL, Rate: 75 ml/hr, Infuse over: 13.3 hr, Route: IV, kg, Total Volume: 1,000, Start date: 08/23/12 17:00:00, Duration: 30 day, Stop date: 09/22/12 16:59:00 [facility] Omnipaque 350mg/ml 2012-08-23 16:48:00 No Franko gouldon 150 mL, Route: IVP, Drug Form: SOLN, Dosing Weight 97.273, kg, ONCALL, STAT, Start date: 08/23/12 11:48:00, Duration: 1 doses or times, Dose = 2.2ml/kg, Max dose = 150mlDose = 2.2ml/kg, Max dose = 150ml [facility] M.V.I. Adult 10 mL + Vitamin B1 100 mg + folic acid 1 mg + potassium chloride 20 mEq + Dextrose 5% 2012-08-23 11:00:00 No Franko Salguero 150 ml/hr, Route: IV, Daily, Start date: 08/23/12 6:00:00, Duration: 1 day, Stop date: 08/23/12 6:00:[address] [facility] ter D5W 1/2NS + KCL 20mEq/L 1000ml (Premix) 1,000 mL 2012-08-02 3 07:40:00 No Ludivina Ana Maria Sana 1,000 mL, Rate: 150 ml/hr, Infuse over: 6.7 hr, Route: IV, kg, Total Volume: 1,000, Start date: 08/23/12 2:40:00, Duration: 30 day, Stop date: 09/22/12 2:39:[facility] Vital Name Observation Time Observation Value Comments Source BP Systolic 2019-02-26 11:41:00 130 mm[Hg] Location: PRESLEY Andersen on: Sitting [facility] BP Diastolic 2019-02-26 11:41:00 85 mm[Hg] Location: PRESLEY Andersen on: Sitting [facility] Height 2019-02-26 11:41:00 69 [in_us] [facility] Weight 2019-02-26 11:41:00 301 [lb_av] [facility] Body Mass Index Calculated 2019-02-26 11:41:00 44.45 kg/m2 [facility] Temperature 2019-02-26 11:41:00 98 [degF] Method: Oral [...] [facility] Heart Rate 2012-08-24 13:26:00 [facility] Respitory Rate 2012-08-24 13:26:00 Felipe [facility] Temperature Oral (F) 2012-08-24 13:26:00 97.9 F [facility] Diastolic (mm Hg) 2012-08-24 13:26:00 [facility] Systolic (mm Hg) 2012-08-24 13:26:00 [facility] Diastolic (mm Hg) 2012-08-24 08:54:00 [facility] Systolic (mm Hg) 2012-08-24 08:54:00 [facility] Respitory Rate 2012-08-24 08:54:00 Felipe [facility] Temperature Oral (F) 2012-08-24 08:54:00 98.0 F [facility] Heart Rate 2012-08-24 08:54:00 [facility] Systolic (mm Hg) 2012-08-24 04:54:00 [facility] Respitory Rate 2012-08-24 04:54:00 [facility] Diastolic (mm Hg) 2012-08-24 04:54:00 [facility] Temperature Oral (F) 2012-08-24 04:54:00 98.0 F [facility] Heart Rate 2012-08-24 04:54:00 [facility] Weight 2012-08-23 04:39:00 [facility] Height 2012-08-23 04:39:00 175.26 cm [facility] Procedures Procedure Date / Time Performed Performing Clinician Sour e Gastric bypass operation 2011-03-01 05:00:00 Medical Group History of Solomon-en-Y gastric bypass [facility] Encounters Start Date/Time End Date/Time Encounter Type Admission Type Attendi [facility] Care Department Encounter ID Source 2019-02-26 10:45:00 2019-02-26 10:45:00 Appointment; FRANKO SALGUERO M.D. WILSON, TODD, M.D. [facility] [id number] [facility] 2018-03-02 21:00:00 2018-03-03 04:59:59 Outpatient [facility] Primary Care [facility] [id number] Medical Group 2018-03-02 16:00:00 2018-03-02 23:59:59 Outpatient Donny Kirk [facility] [id number] 2018-03-02 16:00:00 2018-03-02 16:00:00 Outpatient MHIEA LT MHIEALT [id number] [facility] 2012-08-22 22:39:00 2012-08-24 10:55:00 OU MHIEALT [facility] [id number] [facility] Results Test Description Test Time Test Comments Results Result Comments Source CT ABDOMEN/PELVIS W 2020-05-02 14:54:00 [place] [address] Patient Name: VALENTINE WHITMAN MR #: [id number] : 1980 [facility] 40[id number] Req #: [id number] [facility] Physician: Ordered by: ZULEYMA HENSLEY MD Report #: [id number] Location: ER Room/Bed: Procedure: CT/CT ABDOMEN/PELVIS W Exam Date: 05/02/20 Exam Time: 1425 REPORT STATUS: Signed EXAM: CT Abdomen and Pelvis WITH intravenous contrast INDICATION: Abdominal pain COMPARISON: None. TECHNIQUE: Abdomen and pelvis were scanned utilizing a multidetector helical scanner from the lung base to the pubic symphysis after administration of IV contrast. Coronal and sagittal reformations were obtained. Routine protocol was performed. Scan was performed during portal venous phase. IV CONTRAST: 100mL of Isovue 370 ORAL CONTRAST: None RADIATION DOSE: Total DLP: 874 mGy*cm Dose modulation, iterative reconstruction, and/or weight based adjustment of the mA/kV was utilized to reduce the radiation dose to as low as reasonably achievable. FINDINGS: LOWER THORAX: Normal. HEPATOBILIARY: No focal liver lesions. No biliary ductal dilation. Unremarkable gallbladder. SPLEEN: No splenomegaly. PANCREAS: Edematous pancreatic parenchyma with mild peripancreatic fat stranding. ADRENALS: No adrenal nodules. KIDNEYS/URETERS: No hydronephrosis, stones, or solid mass lesions. PELVIC ORGANS/BLADDER: Unremarkable. PERITONEUM / RETROPERITONEUM: No free air or fluid. LYMPH NODES: No lymphadenopathy. VESSELS: Unremarkable. GI TRACT: No abnormal bowel thickening. No bowel obstruction. Status post gastric bypass surgery. BONES AND SOFT TISSUES: No acute osseous injury. Grade 1 anterolisthesis at L4-5. No suspicious lytic or blastic lesions. IMPRESSION: Edematous pancreatic parenchyma with mild peripancreatic fat stranding can be seen in the setting of pancreatitis. Signed by: Shannon iHll MD on 05/02/2020 2:59 PM Dictated By: SHANNON HILL MD 58 Transcribed By: ADEEL on 05/02/201458 COPY TO: ZULEYMA HENSLEY MD CHEST SINGLE (PORTABLE) 2020-05-02 14:45:00 [place] [address] Patient Name: VALENTINE WHITMAN MR #: [id number] : 1980 Age/Sex: 40/M Req #: [id number] Adm Physician: Ordered by: ZULEYMA HENSLEY MD Report #: [id number] Location: ER Room/Bed: Procedure: [id number] DX/CHEST SINGLE (PORTABLE) Exam Date: 05/02/20 Exam Time: 1330 REPORT STATUS: Signed EXAMINATION: CHEST SINGLE (PORTABLE) INDICATION: Abdominal pain COMPARISON: None FINDINGS: LINES/TUBES:None LUNGS:The lungs are well-inflated. No focal consolidation or pulmonary edema. PLEURA:No pleural effusion or pneu mothorax. MEDIASTINUM:The cardiomediastinal silhouette appears normal in size and shape. BONES/SOFT TISSUES:No acute osseous injury. ABDOMEN:No free air under the diaphragm. IMPRESSION: No focal pneumonia or pulmonary edema. Signed by: Shannon Hill MD on 05/02/2020 2:46 PM Dictated By: SHANNON HILL MD 45 Transcribed By: ADEEL on 05/02/201445 COPY TO: ZULEYMA HENSLEY MD CHEMISTRY 2012-08-24 18:53:00 16 [facility] CHEMISTRY 2012-08-24 18:53:00 2.8 [facility] CHEMISTRY 2012-08-24 18:53:00 1.3 [facility] CHEMISTRY 2012-08-24 18:53:00 13.0 [facility] CHEMISTRY 2012-08-24 18:53:00 6.4 [facility] CHEMISTRY 2012-08-24 18:53:00 27 [facility] CHEMISTRY 2012-08-24 18:53:00 0.7 [facility] CHEMISTRY 2012-08-24 18:53:00 11 [facility] CHEMISTRY 2012-08-24 18:53:00 46 [facility] CHEMISTRY 2012-08-24 18:53:00 29 [facility] CHEMISTRY 2012-08-24 18:53:00 106 [facility] CHEMISTRY 2012-08-24 18:53:00 0.7 [facility] CHEMISTRY 2012-08-24 18:53:00 36 [facility] CHEMISTRY 2012-08-24 18:53:00 47 [facility] CHEMISTRY 2012-08-24 18:53:00 3.6 [facility] CHEMISTRY 2012-08-24 18:53:00 5.0 [facility] CHEMISTRY 2012-08-24 18:53:00 8.4 [facility] CHEMISTRY 2012-08-24 18:53:00 143 [facility] CHEMISTRY 2012-08-24 18:53:00 3.5 [facility] CHEMISTRY 2012-08-24 18:53:00 1.3 [facility] CHEMISTRY 2012-08-24 18:53:00 13.0 [facility] CHEMISTRY 2012-08-24 18:53:00 11 [facility] CHEMISTRY 2012-08-24 18:53:00 46 [facility] CHEMISTRY 2012-08-24 18:53:00 29 [facility] CHEMISTRY 2012-08-24 18:53:00 106 [facility] CHEMISTRY 2012-08-24 18:53:00 0.7 [facility] CHEMISTRY 2012-08-24 18:53:00 8.4 [facility] CHEMISTRY 2012-08-24 18:53:00 143 [facility] CHEMISTRY 2012-08-24 18:53:00 5.0 [facility] HEMATOLOGY 2012-08-24 18:53:00 0.0 [facility] HEMATOLOGY 2012-08-24 18:53:00 39.9 [facility] HEMATOLOGY 2012-08-24 18:53:00 48.4 [facility] HEMATOLOGY 2012-08-24 18:53:00 3.0 [facility] HEMATOLOGY 2012-08-24 18:53:00 8.2 [facility] HEMATOLOGY 2012-08-24 18:53:00 0.2 [facility] HEMATOLOGY 2012-08-24 18:53:00 2.8 [facility] HEMATOLOGY 2012-08-24 18:53:00 0.5 [facility] HEMATOLOGY 2012-08-24 18:53:00 2.3 [facility] HEMATOLOGY 2012-08-24 18:53:00 0.5 [facility] HEMATOLOGY 2012-08-24 18:53:00 Test Item MCH (test code = MCH) 32.2 pg 27.0-31.0 H [facility] HospitalLauzfcWJEHMVWORK3947-46-03 18:53:0039.0[facility] YVPXMYHLYK7081-23-39 18:53:[address] [place], [place] [address]KqyenuGRCCVXVHMU7006-65-21 18:53:[address] [place], [place] [address]WyrxmpYECOBKBRUH3542-75-29 18:53:0033.5[facility] HospitalTdpukeBCKMXUJHZL9766-80-99 18:53:009.9[facility] 2012-08-24 18:53:04856THJohn [facility] HospitalCnmmncYAWHTILDBF0764-91-[address] 18:53:[address] [place], [place] [address]BqppcbRBCJNAQBLA2199-29-56 18:53:004.05[facility] AGTKXJHPVX2452-17-34 18:53:005.7[facility] HospitalYecsekVGHVENYKG7034-30-56 10:21:0019[facility] HospitalHdejsgQNGDVYMBH4491-52-24 10:21:[address] [place], [place] [address]AicdkxBSMQXEYTB5672-98-25 10:21:[address] [place], [place] [address]QhpoztTDNPXEGFJ8280-74-21 10:21:0014.8[facility] HospitalBkqkivBPLPTBYJX3595-63-70 10:21:0024[facility] HospitalJcnaiuDIDRVIXUS6008-14-37 10:21:0032[facility] HospitalCHEMI[facility]Y 2012-08-23 10:21:003.3[facility] HospitalBbvtgkFGFLSXVRZ6714-74-34 10:21:0017[facility] HospitalGlxqfxEFDFFXLVW1085-31-03 10:21:000.9[facility] UDJXORMWD1855-59-70 10:21:0046[facility] HospitalSzfuopNRSGXZWIU7520-12-43 10:21:53791UBJohn [facility] HospitalSncgblEQMQPDAOV2818-59-94 10:21:0090[facility] HospitalSzcqevEHQXGZBLW6437-97-33 10:21:0025[facility] HospitalHfaokwAZPKAPIUD4319-08-78 10:21:007.9[facility] HospitalBhajksZHQHWLTZC2605-93-00 10:21:000.6[facility] HospitalIvzgywQLJTPTIOH2065-97-87 10:21:005.9[facility]CHEMI[facility]Y 2012-08-23 10:21:003.8[facility] HospitalOwrdnrUSTPMMRUP2550-98-27 10:21:83569AKJohn [facility] HospitalYxmddbUTBOGRHAV4788-90-06 10:21:004.0[facility] IWLJFKSIW3741-53-02 10:21:001.8[facility] HospitalAbstgdDUGRFNSEQR1570-23-31 10:21:[address] [place], [place] [address]LuvjrzCJDBFQQCGN3512-53-57 10:21:000.5[facility] HospitalQkdfhiAGSZKVIBRF7343-79-80 10:21:[address] [place], [place] [address]HEMATOLOGY 2012-08-23 10:21:002.4[facility] HospitalIwzajgOWUZRKZOWO9813-54-90 10:21:001.9[facility] HospitalKxeuflMPJNKGDEIT0057-16-74 10:21:002.8[facility] FUWYWMXMWH8466-73-24 10:21:000.6[facility] HospitalRbbsicTMFMXESTKE1599-66-08 10:21:000.0[facility] HospitalFembunLIEJJWYKDD4676-71-53 10:21:009.[address] [place], [place] [address]GqfpauYXMANQDJNU1664-22-01 10:21:0051.7[facility]HE[facility] 2012-08-23 10:21:00* Test Item Value Reference Range Interpretation Comments MCH (test code = MCH) 32.3 pg 27.0-31.0 H [facility] HospitalTjnmatXBXYYGGKQP2242-13-74 10:21:0094.8[facility] XAFGDXYIAS3319-46-56 10:21:0034.1[facility] HospitalSojctnBHXYIFIWBW9918-47-88 10:21:71803BBJohn [facility] HospitalFepklvSOLUUMWLTU5276-73-98 10:21:009.5[facility] HospitalBeqlvyKNFDGQKKYC0358-43-73 10:21:0013.8[facility]HE[facility] 2012-08-23 10:21:0035.5[facility] HospitalLkjdayATGSJDDFLM1028-23-39 10:21:0012.1 [facility] HospitalBybrcuBAYKBIXYXS7822-98-92 10:21:003.74[facility] AICMFOAWPC3548-00-99 10:21:005.4[facility] HospitalMzqtmdTHHYUYXVJH0971-45-83 06:30:001.025[facility] HospitalSjferfTKEKLPNUOT1766-92-88 06:[facility]30[facility]00Clear (08/23/2012 01:30:00) [facility] HospitalPntpsgZLWLNGIEIS0643-25-47 06:30:00Negative mg/dL (08/23/2012 01:30:00) [facility] 06:30:00Negative mg/dL *NA*(08/23/2012 01:30:00) [facility] HospitalQdovloHOTSUATZPA5487-83-02 06:30:007 [facility] 06:30:00Few /LPF *NA*(08/23/2012 01:30:00) [facility] 06:30:00Moderate /LPF *ABN*(08/23/2012 01:30:00) [facility] 06[facility]30:00 Trace *ABN*(08/23/2012 01:30:00) [facility] 06:30:00Negative (08/23/2012 01:30:00) [facility] 2012-[facility] 06:30:002.0[facility] HospitalNrnffhJVYVRCHEMG9519-62-94 06:30:00 Negative (08/23/2012 01:30:00) [facility] HospitalNgnznvOYKJQDOWBI2771-61-92 06:30:00Negative *NA*(08/23/2012 01:30:00) [facility] 2012-08-23 06:30:00Yellow *NA*(08/23/2012 01:30:00) [facility] PYMCGCKEQ8552-42-77 05:25:002.0[facility] HospitalYfzetzVLXCXQNDX1147-06-96 05:25:003.8[facility] HospitalEhvvadISZUPDZAU6336-46-33 05:25:001.[address] [place], [place] [address]HfmvtiAVFYGNHYA5376-47-65 05:25:003.[address] [place] [address] 2012-08-23 05:25:000.[address] [place], [place] [address]YsduehTVWKDQWDG9441-48-95 05:25:0039[facility] HospitalAlpdmfFFZUQVADK0110-54-50 05:25:0064[facility] MYCZTCPAT7136-74-17 05:25:[address] [place], [place] [address]KdjqqtKJXDMAVSV1065-69-53 05:25:000.5[facility] HospitalNhglexHFIJGYFXI2157-45-45 05:25:[address] [place], [place] [address]OtqwovRMKOHJXTC5063-52-63 05:25:0029[facility] 2012-08-23 05:25:007.[address] [place], [place] [address]FgxybfYZTNQEBXN3286-79-26 05:25:06730RHJohn [facility] Smith HospitalOcvvbiWEMLCDGQE5016-99-30 05:25:0049[facility] RCJWPYZDR6708-25-94 05:25:000.5[facility] HospitalWcojrnMIRSBTGIG9032-05-25 05:25:007[address] [place], [place] [address]TyjnjiKSBOVKJBZ9315-44-70 05:25:0029[facility] HospitalHmrcrrMMCPKNORQ6122-66-38 05:25:0039[facility] HospitalHgzyocYJBUUMNKY7087-23-57 05:25:0064[facility] HospitalThosznDRJCTFMLQ4674-07-51 05:25:[address] [place], [place] [address]AmfjzxMFWNZKKNN5203-32-08 05:25:001.4[facility] HospitalCggybzCHDAELLPZ6140-01-99 05:25:003.1[facility] HospitalAifoogJYKACJYKF4567-72-83 05:25:0021[facility] HospitalNydjywKEGKRZFTDI3599-86-54 05:25:0025.3[facility] HospitalHEMATOLOGY 2012-08-23 05:25:008.2[facility] HospitalSoitwmMSSKOTIZLQ4643-28-60 05:25:001.4[facility] HospitalBayhloWDZGRHKIBD5213-60-82 05:25:0064.7[facility] TUHXCUREOM5495-01-60 05:25:005.0[facility] HospitalDloxfaXPIPLSYMCR8611-71-14 05:25:001.9[facility] HospitalFxjicnVINJJEMJCH4336-62-27 05:25:000.6[facility] HospitalYkuevdFDMAKCUYOB7516-05-40 05:25:000.1[facility] HospitalHEMATOLOGY 2012-08-23 05:25:000.4[facility] HospitalVjnsqtIISDRWZSPB1339-17-43 05:25:000.0[facility] HospitalFtrotoRYQZBQHLBN0286-92-21 05:25:18879SX[facility] KFFWNUNMFA5254-52-39 05:25:0013.7[facility] HospitalDosoxvIDVBCPPKQT6194-20-96 05:25:009.8[facility] HospitalLbaehpAVVLXEOREN6424-23-73 05:25:007.7[facility] HospitalDtmeotFZDWRWLRYN6519-48-08 05:25:0039.5[facility]HE[facility] 2012-08-23 05:25:0095.1[facility] HospitalTapmnaBJAIEEVHKW8939-97-30 05:25:004.15 [facility] HospitalOyyjvhUXEBJEEOXB5994-23-23 05:25:0013.4[facility] GSANBOFLAO5883-78-73 05:25:00* Test Item Value Reference Range Interpretation Comments MCH (test code = MCH) 32.2 pg 27.0-31.0 H [facility] HospitalBdlktzVGCCANWTDM4933-94-02 05:25:[address] [place] [address]
[2020-05-02] MEDS: SODIUM CHLORIDE 0.9% 1000ML 1,000 ML IV SCH ×2 (15:45→23:30)
--- NOTE | 2020-05-02 16:00 | NUR ---
Patient denies use of home medications
--- NOTE | 2020-05-02 16:06 | Diagnostic Imaging Report ---
EXAM: Right upper quadrant abdominal ultrasound INDICATION: Right upper quadrant pain COMPARISON: CT abdomen and pelvis of the same day TECHNIQUE: Transverse and longitudinal images of the right upper quadrant abdomen were obtained FINDINGS: Liver: Size: 14.8 cm in the right midclavicular line, normal Appearance: Normal echogenicity, smooth contour Mass: No focal masses Gallbladder: No gallbladder distension, pericholecystic fluid, wall thickening, stone, or reported sonographic Robison's sign. Gallbladder wall measures 3 mm. Bile Ducts: Intrahepatic Ducts: No dilatation Extrahepatic Ducts: Common bile duct measures 5 mm Pancreas: Limited visualization due to overlying bowel gas. Kidney: The right kidney measures 10.6 cm without evidence of hydronephrosis or stone. Vessels: Aorta: Visualized portions are normal Inferior Vena Cava: Visualized portions are normal Main Portal Vein: 1.0 cm, normal size with hepatopetal flow. Free Fluid: No ascites or pleural effusion IMPRESSION: No sonographic evidence of cholelithiasis or cholecystitis. Signed by: Tony Hill MD on 05/02/2020 4:03 PM
--- NOTE | 2020-05-02 16:49 | NUR ---
Covid swab obtained and sent to lab.
[2020-05-02 18:23] VITALS: BP 119/72
[2020-05-02] MEDS: MORPHINE SULFATE INJ 4 MG/ML INJ 1ML IV PRN (18:35)
[2020-05-02] MEDS: ONDANSETRON HCL INJ 2MG/ML 2ML 2 MG/ML VIAL IV PRN (18:35)
[2020-05-02 18:36] VITALS: BP 119/72
[2020-05-02 20:00] VITALS: BP 123/68
--- NOTE | 2020-05-02 20:26 | NUR ---
Received report from nurse. Walking rounds completed.
[2020-05-02 22:27] VITALS: BP 123/68
[2020-05-03] VITALS (7 sets, daily range): BP systolic 112–124; BP diastolic 54–72
[2020-05-03] MEDS: MORPHINE SULFATE INJ 4 MG/ML INJ 1ML IV PRN ×4 (00:46→23:42)
[2020-05-03] MEDS: ONDANSETRON HCL INJ 2MG/ML 2ML 2 MG/ML VIAL IV PRN ×4 (00:46→23:42)
--- NOTE | 2020-05-03 00:46 | NUR ---
Patient c/o of sudden pain to abdomin. Pain and nausea meds given as ordered by MD.
--- NOTE | 2020-05-03 04:13 | NUR ---
Patient resting quitly at this time. States pain meds helped. Continue monitor.
[2020-05-03 05:48] LABS: BASOPHILS % 0.3 % (0.0-1.0); EOSINOPHILS # (AUTO) 0.1 (0.0-0.4); EOSINOPHILS % 1.1 % (0.0-6.0); HEMATOCRIT 37.5 % (38.2-49.6); HEMOGLOBIN 12.3 g/dL (14.0-18.0); LYMPHOCYTES # (AUTO) 1.2 (1.0-3.2); MEAN CORPUSCULAR HEMOGLOBIN 31.5 pg (28-32); MEAN CORPUSCULAR HGB CONC 32.8 g/dL (31-35); MEAN CORPUSCULAR VOLUME 95.9 fL (81-99); MONOCYTES # (AUTO) 0.7 (0.2-0.8); MONOCYTES % 11.5 % (4.4-11.3); NEUTROPHILS # (AUTO) 4.2 (2.1-6.9); NEUTROPHILS % 67.6 % (38.7-80.0); PLATELET COUNT 136 x10e3/uL (140-360); RED BLOOD COUNT 3.91 x10e6/uL (4.3-5.7); RED CELL DISTRIBUTION WIDTH 13.1 % (11.7-14.4)
[2020-05-03 06:17] LABS: ALANINE AMINOTRANSFERASE 19 IU/L (0-55); ALBUMIN 3.2 g/dL (3.5-5.0); ALKALINE PHOSPHATASE 42 IU/L (40-150); ANION GAP 11.2 mmol/L (8-16); BLOOD UREA NITROGEN 11 mg/dL (7-26); BUN/CREATININE RATIO 14 (6-25); CALCIUM 8.5 mg/dL (8.4-10.2); CARBON DIOXIDE 27 mmol/L (22-29); CHLORIDE 105 mmol/L (98-107); CREATININE, SERUM 0.77 mg/dL (0.72-1.25); EST GLOMERULAR FILTRATION RATE > 60 ML/MIN (60-); GLUCOSE 94 mg/dL (74-118); LIPASE 31 U/L (8-78); POTASSIUM 4.2 mmol/L (3.5-5.1); SODIUM 139 mmol/L (136-145)
[2020-05-03 06:43] LABS: CREATINE KINASE MB 0.6 ng/mL (0-5.0)
[2020-05-03] MEDS: SODIUM CHLORIDE 0.9% 1000ML 1,000 ML IV SCH ×3 (08:41→23:30)
[2020-05-03] MEDS: PANTOPRAZOLE 40 MG 10ML VIAL IV SCH ×2 (08:41→17:16)
--- NOTE | 2020-05-03 19:08 | NUR ---
Received change of shift report from AM nurse. Walking rounds completed.
[2020-05-04] VITALS (7 sets, daily range): BP systolic 114–139; BP diastolic 65–83
--- NOTE | 2020-05-04 01:00 | NUR ---
Patient c/o pain = 7. Patient and nausea meds given as ordered by MD.
--- NOTE | 2020-05-04 04:42 | NUR ---
Patient resting quitly at this time.
[2020-05-04] MEDS: MORPHINE SULFATE INJ 4 MG/ML INJ 1ML IV PRN ×3 (05:27→20:34)
[2020-05-04] MEDS: ONDANSETRON HCL INJ 2MG/ML 2ML 2 MG/ML VIAL IV PRN ×3 (05:27→20:34)
[2020-05-04] MEDS: SODIUM CHLORIDE 0.9% 1000ML 1,000 ML IV SCH ×2 (05:27→14:07)
[2020-05-04] MEDS: PANTOPRAZOLE 40 MG 10ML VIAL IV SCH ×2 (08:42→17:33)
--- NOTE | 2020-05-04 11:00 | NUR ---
Pt. expressed no spiritual or emotional concerns at this time. Pt's at bedside. Tram Operator provided hospitality and information on how to reach railroad car letterer, if needed. No need to follow at this time. DONYA ZIMMERMAN Tram Operator Spiritual Care Department O: [phone]
--- NOTE | 2020-05-04 19:24 | Diagnostic Imaging Report ---
Hepatobiliary Scan with Gallbladder Ejection Fraction Clinical information: Upper abdominal pain Report: Following intravenous administration of 6.6 millicuries of Tc-99m mebrofenin, dynamic images of the abdomen in the anterior projection were obtained through 60 minutes. Sincalide (CCK analog) 2.7 micrograms was administered intravenously over 30 minutes with additional imaging for determination of gallbladder ejection fraction. Perfusion to the liver is normal. Extraction of tracer from the blood pool by the liver parenchyma is normal. Tracer is seen promptly within the biliary tract. The gallbladder begins to fill by 10 minutes post-injection of tracer and fills adequately. Tracer is seen in the small bowel by 35 minutes. The gallbladder ejection fraction with administration of sincalide is 41% (normal greater than 40%). Impression: 1. Filling of the gallbladder excludes the diagnosis of acute cystic duct obstruction/acute cholecystitis. 2. Borderline normal gallbladder ejection fraction of 41% does not support the clinical diagnosis of chronic cholecystitis/gallbladder dyskinesia. Signed by: Dr. Evelina Schulz M.D. on 05/04/2020 7:21 PM
[2020-05-05] VITALS (9 sets, daily range): BP systolic 106–131; BP diastolic 54–79
[2020-05-05] MEDS: SODIUM CHLORIDE 0.9% 1000ML 1,000 ML IV SCH ×4 (00:42→23:30)
[2020-05-05] MEDS: ONDANSETRON HCL INJ 2MG/ML 2ML 2 MG/ML VIAL IV PRN ×3 (06:31→23:07)
[2020-05-05] MEDS: MORPHINE SULFATE INJ 4 MG/ML INJ 1ML IV PRN ×3 (06:31→23:07)
--- NOTE | 2020-05-05 06:46 | NUR ---
PATIENT IS RESTING COMFORTABLY IN THE BED. BED IS IN LOWEST POSITION AND CALL GLEZ IS WITHIN REACH.
[2020-05-05 06:50] LABS: BASOPHILS % 0.6 % (0.0-1.0); EOSINOPHILS # (AUTO) 0.1 (0.0-0.4); EOSINOPHILS % 2.4 % (0.0-6.0); HEMATOCRIT 38.2 % (38.2-49.6); HEMOGLOBIN 12.9 g/dL (14.0-18.0); LYMPHOCYTES # (AUTO) 1.2 (1.0-3.2); LYMPHOCYTES % 24.4 % (18.0-39.1); MEAN CORPUSCULAR HEMOGLOBIN 32.5 pg (28-32); MEAN CORPUSCULAR HGB CONC 33.8 g/dL (31-35); MEAN CORPUSCULAR VOLUME 96.2 fL (81-99); MONOCYTES # (AUTO) 0.5 (0.2-0.8); MONOCYTES % 10.6 % (4.4-11.3); NEUTROPHILS # (AUTO) 3.1 (2.1-6.9); NEUTROPHILS % 61.4 % (38.7-80.0); PLATELET COUNT 150 x10e3/uL (140-360); RED BLOOD COUNT 3.97 x10e6/uL (4.3-5.7); RED CELL DISTRIBUTION WIDTH 12.2 % (11.7-14.4)
[2020-05-05 07:13] LABS: ALANINE AMINOTRANSFERASE 20 IU/L (0-55); ALBUMIN 3.1 g/dL (3.5-5.0); ALBUMIN/GLOBULIN RATIO 0.9 (0.8-2.0); ALKALINE PHOSPHATASE 42 IU/L (40-150); AMYLASE 59 U/L (25-125); ANION GAP 13.8 mmol/L (8-16); BLOOD UREA NITROGEN 12 mg/dL (7-26); BUN/CREATININE RATIO 16 (6-25); CALCIUM 8.3 mg/dL (8.4-10.2); CARBON DIOXIDE 24 mmol/L (22-29); CHLORIDE 105 mmol/L (98-107); CREATININE, SERUM 0.76 mg/dL (0.72-1.25); EST GLOMERULAR FILTRATION RATE > 60 ML/MIN (60-); GLUCOSE 63 mg/dL (74-118); LIPASE 47 U/L (8-78); MAGNESIUM 1.7 MG/DL (1.3-2.1); POTASSIUM 4.8 mmol/L (3.5-5.1); SODIUM 138 mmol/L (136-145)
[2020-05-05] MEDS: PANTOPRAZOLE 40 MG 10ML VIAL IV SCH ×2 (09:00→21:00)
--- NOTE | 2020-05-05 09:38 | NUR ---
PT TOLERATING FULL LIQUIDS AT THIS TIME, PAIN CONTROLLED, MD Sean WHITMAN AWARE OF CONSULT
[2020-05-05 11:40] LABS: CHOL/HDL RATIO 2.6 (3.9-4.7)
--- NOTE | 2020-05-05 16:45 | NUR ---
PT WHEELED OFF UNIT FOR MRCP, NO CHANGE IN CONDITION
--- NOTE | 2020-05-05 17:54 | Diagnostic Imaging Report ---
EXAM: MRI of the abdomen without contrast with MRCP INDICATION: : Bile duct or pancreatic duct stone.. COMPARISON: None. Correlation with CT abdomen and ultrasound gallbladder dated 05/02/2020.. TECHNIQUE: Multiplanar and multisequence imaging was performed of the abdomen. T1 and T2-weighted images were obtained with and without contrast. T1-weighted in and [id number]. M.R.C.P. technique: Multiplanar, multisequence MRCP was performed, with sequences including coronal turbo spin-echo T1-weighted scans, [facility] MRCP scans, coronal spin, coronal MPR 2, [facility] 3D HR, [facility] MRCP CABRAL. Discussion: Evaluation of parenchymal organs is limited due to the lack of contrast. LOWER THORAX: Unremarkable. HEPATOBILIARY: No focal hepatic lesions. No biliary ductal dilation. GALLBLADDER: No radio-opaque stones or sludge. No wall thickening. The common bile duct is normal in caliber measuring 6 mm in diameter, without filling defects or strictures. SPLEEN: No splenomegaly. PANCREAS: There is mildly diffusely increased signal of the pancreatic parenchyma associated with a trace peripancreatic fluid may reflect mild pancreatitis in the proper clinical setting. The main pancreatic duct is visible in the pancreatic head, however, not dilated. No focal masses or ductal dilatation. ADRENALS: No adrenal nodules KIDNEYS/URETERS: Kidneys enhance symmetrically. No hydronephrosis. No cystic or solid mass lesions. No stones. GI TRACT: No abnormal distention, wall thickening, or evidence of bowel obstruction. Postoperative changes involving the stomach are not well visualized with this examination; please for to report of recent CT examination. LYMPH NODES: No lymphadenopathy. VESSELS: Unremarkable. PERITONEUM / RETROPERITONEUM: No free air or fluid. BONES: No acute abnormality. SOFT TISSUES: Unremarkable. IMPRESSION: No evidence of choledocholithiasis or pancreatic ductal calculus as per clinical query. No biliary dilatation. Signed by: Dr. Constantin Taylor M.D. on 05/05/2020 5:51 PM
[2020-05-06 00:44] VITALS: BP 133/83
[2020-05-06 05:30] VITALS: BP 121/79
--- NOTE | 2020-05-06 05:52 | Progress Note ---
DATE: SUBJECTIVE: A 40-year-old male, who came in pancreatitis on CT and also abdominal pain. The patient is currently eating full liquid diet and has been able to tolerate. Bowel movements positive. Abdominal pain still persist, 5/10. The patient is requiring morphine every 8 hours. No chest pains. No shortness of breath. MRCP was done yesterday. HIDA scan was done yesterday. The patient is fairly asymptomatic at this time. PHYSICAL EXAMINATION: VITAL SIGNS: Temperature is 97.9, pulse of 50, respirations of 18, blood pressure is 133/83, pulse oximetry of 98%. HEENT: On examination, the patient is alert and oriented x3, obese. CVS: S1 and S2 normal. Regular rate and rhythm. LUNGS: Clear to auscultation. ABDOMEN: Slight tenderness in the epigastric area. No rebound or guarding. Bowel sounds are positive. EXTREMITIES: No clubbing, no cyanosis, no edema. MEDICATIONS: Morphine sulfate q.4 hours, Zofran 4 mg, pantoprazole 40 mg, fluids 125 mL an hour. LABORATORY VALUES: Chemistries; lipase and amylase have trended down. Lipase was 47, prior to this was 31. CT scan as mentioned with evidence of peripancreatic stranding. Gallbladder ultrasound with no sonographic evidence of cholelithiasis or cholecystitis. HIDA scan, which showed EF of 41% with no cholecystitis and MRCP showed no evidence of choledocholithiasis or pancreatic ductal calculus. No biliary dilatation seen. The patient's LDL cholesterol and his triglycerides within normal limits too. ASSESSMENT: Mr. Ramez Coffman with: 1. Pancreatitis, etiology unknown, idiopathic. 2. Abdominal pain from pancreatitis. 3. Obesity. PLAN: Continue monitoring the patient. The patient can advance his diet today, can be discharged home in lieu of his trending lipase and normal HIDA, normal MRCP, to be followed by Dr. Laboy as an outpatient basis. Clearance from surgery before discharge. MD RAVEN Ewing/ROBERTOL /[id number]
--- NOTE | 2020-05-06 06:45 | NUR ---
on unit rounding on patient. states from his standpoint it is ok for patient to be discharged home pending clearance from surgeon. wants to be notified once clearance is obtained from surgeon.
--- NOTE | 2020-05-06 06:48 | NUR ---
PATIENT IS RESTING COMFORTABLY IN THE BED. BED IS IN LOWEST POSITION AND CALL GLEZ IS WITHIN REACH
--- NOTE | 2020-05-06 07:00 | NUR ---
Received bedside shift report from BRANDAN Ordoñez. Patient alert, verbalizing pain. PRN Morphine to be given, otherwise no signs of distress noted. Call light within reach.
[2020-05-06] MEDS: ONDANSETRON HCL INJ 2MG/ML 2ML 2 MG/ML VIAL IV PRN (07:17)
[2020-05-06] MEDS: MORPHINE SULFATE INJ 4 MG/ML INJ 1ML IV PRN ×2 (07:17→13:55)
[2020-05-06 08:19] VITALS: BP 143/89
[2020-05-06 08:44] VITALS: BP 143/89
[2020-05-06] MEDS: PANTOPRAZOLE 40 MG 10ML VIAL IV SCH (09:58)
[2020-05-06] MEDS: SODIUM CHLORIDE 0.9% 1000ML 1,000 ML IV SCH (09:58)
--- NOTE | 2020-05-06 12:21 | NUR ---
Called Dr. Adrian Coffman answering service, left a message with Karime for pending clearance for discharge. Awaiting call back.
[2020-05-06 12:24] VITALS: BP 141/72
[2020-05-06 12:25] VITALS: BP 122/71
--- NOTE | 2020-05-06 12:45 | NUR ---
Dr. Adrian Coffman called back. States patient is clear for discharge and is to follow up in his office in one week.
== END 2020-05-06 14:10 | disposition home or self-care (01) | DRG 439 ==
LOC: ER 11:52 → ERHOLD 15:17 → MED/SURG 18:09 → OBSVTOIN 05-03 09:45
PROVIDERS: ADMIT Internal Medicine; ATTEND Internal Medicine
DX: K85.00 Idiopathic acute pancreatitis without necrosis or infection (principal); Z68.41 Body mass index [BMI] 40.0-44.9, adult; Z98.84 Bariatric surgery status; Z82.49 Family history of ischemic heart disease and other diseases of the circulatory system; K21.9 Gastro-esophageal reflux disease without esophagitis; D64.9 Anemia, unspecified; E66.01 Morbid (severe) obesity due to excess calories
CPT/HCPCS: 36415; 71045; 74177; 74181; 76705; 78227; 80053; 80061; 81001; 82150; 82550; 82553; 83690; 83735; 84484; 85025; 85610; 85730; 87635; 99284; A9537; G0378; J1170; J2270; J2405; J7030; Q9967

== ENCOUNTER → 2020-05-25 | Outpatient (CLI) | payer BC ==
[~2020-05-25] MED LIST: IOPAMIDOL 370 MG/ML 200 ML INFUS..BTL INJ ONE; SODIUM CHLORIDE 0.9% 50ML 50 ML ONE
--- NOTE | 2020-05-25 16:33 | Diagnostic Imaging Report ---
EXAM: CT Abdomen and Pelvis WITH intravenous contrast INDICATION: Pancreatitis, abdominal pain COMPARISON: MRCP 05/05/2020, CT abdomen pelvis 05/02/2020 TECHNIQUE: Abdomen and pelvis were scanned utilizing a multidetector helical scanner from the lung base to the pubic symphysis after administration of IV contrast. Coronal and sagittal reformations were obtained. Routine protocol was performed. Scan was performed during portal venous phase. IV CONTRAST: 100mL of Isovue 370 ORAL CONTRAST: Water RADIATION DOSE: Total DLP: 797 mGy*cm Dose modulation, iterative reconstruction, and/or weight based adjustment of the mA/kV was utilized to reduce the radiation dose to as low as reasonably achievable. FINDINGS: LOWER THORAX: Normal. HEPATOBILIARY: New 8.2 x 5.8 cm left hepatic fluid collection with a tiny focus of air in the superior portion of the collection. No other focal liver lesions. No biliary ductal dilation. Unremarkable gallbladder. SPLEEN: No splenomegaly. PANCREAS: Interval resolution of previously seen pancreatic edema and peripancreatic inflammation. ADRENALS: No adrenal nodules. KIDNEYS/URETERS: No hydronephrosis, stones, or solid mass lesions. PELVIC ORGANS/BLADDER: Unremarkable. PERITONEUM / RETROPERITONEUM: No free air or fluid. LYMPH NODES: No lymphadenopathy. VESSELS: Unremarkable. GI TRACT: Status post gastric bypass. No abnormal bowel thickening. No bowel obstruction. BONES AND SOFT TISSUES: No acute osseous injury. No suspicious lytic or blastic lesions. Grade 1 anterolisthesis at L4-5. IMPRESSION: New 8.2 x 5.8 cm left hepatic fluid collection with tiny focus of internal air, raising concern for hepatic abscess. Interval resolution of previously seen pancreatitis. The above findings were discussed with Dr. Andino on 05/25/2020 4:26 PM, who responded indicating that the communication was understood. Signed by: Tony Hill MD on 05/25/2020 4:30 PM
== END ==
LOC: CT 14:19
PROVIDERS: ATTEND Internal Medicine Gastroenterology
DX: R10.9 Unspecified abdominal pain (principal); Z87.19 Personal history of other diseases of the digestive system
CPT/HCPCS: 74177; Q9967

== ENCOUNTER → 2020-06-01 | Outpatient (CLI) | payer BC ==
[~2020-06-01] MED LIST changes: +FENTANYL CITRATE/PF 100MCG/2 ML INJ ONE; -IOPAMIDOL 370 MG/ML 200 ML INFUS..BTL INJ ONE; +MIDAZOLAM HCL 2 MG/2 ML VIAL ONE; -SODIUM CHLORIDE 0.9% 50ML 50 ML ONE; +TRAMADOL HCL 50 MG TAB ONE
[2020-06-01 10:47] LABS: HEMOGLOBIN 13.7 g/dL (14.0-18.0)
--- NOTE | 2020-06-01 13:47 | Diagnostic Imaging Report ---
PROCEDURE: Fluid collection aspiration Procedural Personnel Attending physician(s): Tony Hill MD Fellow physician(s): None Resident physician(s): None Advanced practice provider(s): None Pre-procedure diagnosis: Left liver fluid collection Post-procedure diagnosis: Same Indication: Pain associated with fluid collection Additional clinical history: None Complications: No immediate complications. IMPRESSION: Percutaneous aspiration of left hepatic fluid collection, yielding 20 mL of cloudy bile tinged fluid. No drainage catheter was left in place. Plan: Fluid sent for gram stain, culture, total bilirubin. PROCEDURE SUMMARY: - Aspiration of left hepatic fluid collection under ultrasound guidance - Additional procedure(s): None PROCEDURE DETAILS: Pre-procedure Consent: Informed consent for the procedure including risks, benefits and alternatives was obtained and time-out was performed prior to the procedure. Preparation: The site was prepared and draped using maximal sterile barrier technique including cutaneous antisepsis. Anesthesia/sedation Level of anesthesia/sedation: Moderate sedation (conscious sedation) 1mg Versed, 100mcg Fentanyl Anesthesia/sedation administered by: Independent trained observer under attending supervision with continuous monitoring of the patient?s level of consciousness and physiologic status Total intra-service sedation time (minutes): 30 Fluid collection aspiration The patient was positioned supine. Initial imaging was performed. Local anesthesia was administered. The fluid collection was accessed using an access needle. Position within the fluid collection was confirmed, and fluid aspiration was performed. All instruments were then removed. - Initial imaging findings: Left hepatic fluid collection - Aspiration needle/catheter: 5Fr OneStep catheter - Post-aspiration imaging findings: Near-complete drainage of the fluid collection Contrast Contrast agent: None Contrast volume (mL): 0 Radiation Dose None Additional Details Additional description of procedure: None Equipment details: None Specimens removed: Aspirated fluid was sent for analysis. Estimated blood loss (mL): Less than 10 Standardized report: [id number] Attestation Signer name: Tony Hill MD I attest that I was present for the entire procedure. I reviewed the stored images and agree with the report as written. Signed by: Tony Hill MD on 06/01/2020 1:44 PM
== END ==
LOC: US 09:51
PROVIDERS: ATTEND Internal Medicine Gastroenterology
DX: K75.0 Abscess of liver (principal); R10.11 Right upper quadrant pain
CPT/HCPCS: 36415; 49406; 76942; 82248; 85014; 85049; 87070; 87205; 88112; 88305; J2250; J3010

== ENCOUNTER → 2020-06-09 | Outpatient (CLI) | payer BC ==
--- NOTE | 2020-06-10 11:23 | Diagnostic Imaging Report ---
Hepatobiliary Scan with Gallbladder Ejection Fraction Clinical information: RUQ pain Technique: Following intravenous administration of 6.6 millicuries of Tc-99m mebrofenin, dynamic images of the abdomen in the anterior projection were obtained through 60 minutes. An additional spot image was obtained at 90 minutes. Sincalide (CCK analog) 2.6 micrograms was administered intravenously over 30 minutes with additional imaging for determination of gallbladder ejection fraction. Discussion: Perfusion of the liver is normal. Extraction of tracer by the liver parenchyma is normal. Tracer appears promptly within the biliary tract. The gallbladder doesn't fill during the initial 60-minute dynamic sequence but does fill by 90 minutes post injection of tracer and fills adequately. Tracer is seen in the small bowel by 12 minutes. The gallbladder ejection fraction with sincalide is 31% (normal greater than 40%). Impression: 1. Filling of the gallbladder excludes acute cystic duct obstruction/acute cholecystitis. 2. The decreased gallbladder ejection fraction of 31% supports the clinical diagnosis of chronic cholecystitis/gallbladder dyskinesia. Signed by: Dr. Evelina Schulz M.D. on 06/10/2020 11:20 AM
== END ==
LOC: NM 13:43
PROVIDERS: ATTEND Internal Medicine Gastroenterology
DX: R10.31 Right lower quadrant pain (principal)
CPT/HCPCS: 78227; A9537

== ENCOUNTER 2020-06-24 11:25 | Emergency (ER) | payer BC ==
[~2020-06-24] VITALS: Ht 175.3 cm; Wt 130.2 kg
[2020-06-24] MEDS ORDERED: ONDANSETRON HCL INJ 2MG/ML 2ML 2 MG/ML VIAL IV STA (11:41)
[2020-06-24] MEDS ORDERED: MORPHINE SULFATE 2 MG/ML SYR 1ML IV STA (11:41)
[2020-06-24] MEDS ORDERED: SODIUM CHLORIDE 0.9% 1000ML 1,000 ML IV SCH (11:45)
--- NOTE | 2020-06-24 12:30 | Emergency Department Note ---
History of Present Illnes History of Present Illness Chief Complaint: Abdominal Complaints History of Present Illness This is a 40 year old male . Historian: Patient Arrival Mode: Car Child Custody Evaluator Required: No Onset (how long ago): day(s) (1 day last night) Location: [facility] Radiation: Reports non-radiation Severity: moderate Onset quality: sudden Duration (how long): day(s) (1) Timing of current episode: constant Progression: unchanged Chronicity: recurrent Context: Denies recent illness, Denies recent surgery, Denies recent immob ilization, Denies recent travel, Denies trauma/injury, Denies new medications, Denies hx of DVT/PE, Denies non-compliance w/ medications, Denies other Relieving factors: medication Exacerbating factors: none Associated symptoms: Reports denies other symptoms (diarrhea, dark non bloody has had [facility] admitted May 02- for Pancreatitis); Denies confusion, Denies chest pain, Denies cough, Denies diaphoresis, Denies fever/chills, Denies headaches, Denies loss of appetite, Denies malaise, Denies nausea/vomiting, Denies rash, Denies seizure, Denies shortness of breath, Denies syncope, Denies weakness, Denies other Treatments prior to arrival: other (Tramadol and Lomotirl) Past Medical/Family History Physician Review I have reviewed the patient's past medical and family history. Any updates have been documented here. Past Medical History Recent Fever: No Clinical Suspicion of Infectio: No New/Unexplained Change in Ment: No Past Medical History: None Other Medical History: Pancreatitis Past Surgical History: Bariatric Surgery Other Surgery: gastric bypass Social History Smoking Cessation: Never Smoker Counseling Performed: No Alcohol Use: Occasional Any Illegal Drug Use: No Family History Family history of heart diseas: No Review of Systems Review of Systems Constitutional: Denies no symptoms, Denies as per HPI, Denies chills, Denies diaphoresis, Denies fever, Denies malaise, Denies weakness, Denies other Gastrointestinal: Reports as per HPI Integumentary: Denies no symptoms, Denies as per HPI, Denies change in color, Denies change in hair/nails, Denies dryness, Denies lesions, Denies lumps, Denies rash, Denies poor turgor, Denies ecchymosis, Denies other Review of other systems: All other systems negative Physical Exam Related Data Allergies: Coded Allergies: No Known Allergies (Unverified , 05/02/20) Vital signs reviewed: Yes Physical Exam CONSTITUTIONAL Constitutional: Present obese HENT HENT: Present normocephalic EYES Eyes: Reports conjunctivae normal NECK PULMONARY Pulmonary: Present breath sounds normal CARDIOVASCULAR Cardiovascular: Present regular rhythm GASTROINTESTINAL Abdominal: Present soft, Present tender ([facility] no rebound); Absent guarding, Absent rebound GENITOURINARY SKIN Skin: Present warm MUSCULOSKELETAL Musculoskeletal: Present ROM normal NEUROLOGICAL Neurological: Present oriented x 3 PSYCHOLOGICAL Psychological: Present mood/affect normal Results Laboratory Laboratory CBC Normal CMP Normal UA unremarkable Lactic acid normal Lab results reviewed: Yes Imaging Imaging results reviewed: Yes Impressions CT with evidence of possible micro perf, wall thickening surrounding stranding at the proximal jejunum near the anastomosis, mild diffuse small bowel and colonic wall thickening c/w colitis Assessment & Plan Medical Decision Making MDM pancreatitis, perforation, PUD, colitis, Ischemic bowel Reassessment Reassessment Spoke with Dr Garcia Coffman who was precision assembly inspector refers patient to Gastric Surgeon as he does not take care of these patients Spoke with Dr Andino who is aware of patient Spoke with Dr Hicks who is a Gastric Bypass Surgeon but who is out of town and can consult on the case pt has received IV ABX and IV Protonix Assessment & Plan Final Impression: (1) Bowel perforation (2) Abdominal pain (3) Colitis (4) UPPER ABDOMINAL PAIN, UNSPECIFIED Depart Disposition: TRANS TO OTHER [facility] Home Meds No Active Prescriptions or Reported Meds Medications in the ED Sodium Chloride 1,000 ml @ 0 mls/hr Q0M IV ; Start 06/24/20 at 11:45; Stop 07/24/20 at 11:44; Status UNV Morphine Sulfate 4 mg NOW STAT IV ; Start 06/24/20 at 11:41; Stop 06/24/20 at 12:00; Status DC Ondansetron HCl 4 mg NOW STAT IV ; Start 06/24/20 at 11:41; Stop 06/24/20 at 11:42; Status UNV JONEL GOMEZ MD Jun 24, 2020 12:08
[2020-06-24] MEDS ORDERED: ONDANSETRON HCL INJ 2MG/ML 2ML 2 MG/ML VIAL ONE (12:40)
[2020-06-24] MEDS ORDERED: MORPHINE SULFATE INJ 4 MG/ML INJ 1ML ONE (12:41)
[2020-06-24] MEDS ORDERED: SODIUM CHLORIDE 0.9% 1000ML 1,000 ML ONE (12:41)
[2020-06-24] MEDS ORDERED: SODIUM CHLORIDE 0.9% 50ML 50 ML ONE (13:24)
[2020-06-24] MEDS ORDERED: IOPAMIDOL 370 MG/ML 200 ML INFUS..BTL INJ ONE (13:24)
[2020-06-24] MEDS ORDERED: PANTOPRAZOLE 40 MG 10ML VIAL IV STA (13:30)
[2020-06-24] MEDS ORDERED: PANTOPRAZOL 40MG/SOD CHL 0.9% 50 ML IV ONE (13:45)
--- NOTE | 2020-06-24 13:53 | Diagnostic Imaging Report ---
ADDENDUM #1 ADDENDUM: Mild diffuse small bowel and colonic wall thickening may represent decompression or enteritis/colitis which may be infectious or inflammatory in the appropriate clinical setting. Signed by: Dr. Nash Dalton MD on 06/24/2020 1:55 PM ORIGINAL REPORT EXAM: CT Abdomen and Pelvis WITH contrast INDICATION: Abdominal Pain COMPARISON: CT abdomen/pelvis 05-25-2020. TECHNIQUE: Abdomen and pelvis were scanned utilizing a multidetector helical scanner from the lung base to the pubic symphysis after administration of IV contrast. Coronal and sagittal reformations were obtained. Routine protocol was performed. Scan was performed during portal venous phase. IV CONTRAST: 100 cc of Isovue-370 ORAL CONTRAST: None COMPLICATIONS: None RADIATION DOSE: Total DLP: 821 mGy*cm Estimated effective dose: (DLP x 0.015 x size factor) mSv CTDIvol has been reviewed. It is below the limits set by the Radiation Protocol Committee (RPC). FINDINGS: LINES and TUBES: None. LOWER THORAX: Unremarkable HEPATOBILIARY: Diffuse mild hepatic steatosis. No evidence of focal lesion. No biliary ductal dilation. GALLBLADDER: No radio-opaque stones or sludge. No wall thickening. SPLEEN: No splenomegaly. PANCREAS: No focal masses or ductal dilatation. ADRENALS: No adrenal nodules KIDNEYS/URETERS: Kidneys enhance symmetrically. No evidence of hydronephrosis, solid mass, or stone. GI TRACT: Status post Solomon-en-Y gastric bypass. There is wall thickening within the proximal jejunum near the root limb anastomosis with surrounding stranding. There are punctate foci of adjacent air anteriorly on series 2, image 29. There is wall thickening within the distal transverse colon adjacent to the Solomon limb. Apparent mild wall thickening within the additional small bowel loops and within the colon, likely secondary to decompression.. Small hiatal hernia. No evidence of bowel obstruction. PELVIC ORGANS/BLADDER: Somewhat limited evaluation secondary to streak artifact. Partially decompressed bladder. LYMPH NODES: No lymphadenopathy. VESSELS: Unremarkable. PERITONEUM / RETROPERITONEUM: Punctate upper abdominal air adjacent to the Solomon limb. No free fluid. Interval drainage of left perihepatic collection with punctate focus of residual air. BONES AND SOFT TISSUES: Unremarkable. CONCLUSION: Status post Solomon-en-Y gastric bypass. Wall thickening and surrounding stranding at the proximal jejunum near the anastomosis with punctate pneumoperitoneum suggestive of perforation. Adjacent wall thickening within the distal transverse colon, likely reactive. A colonic perforation is considered less likely. Interval drainage of left perihepatic collection with no residual collection. Inflammatory changes related to interval drainage are felt to be less likely to account for the stranding and pneumoperitoneum, therefore perforation is favored. The above findings were discussed with Dr. Tim Teran, who indicated that the findings were understood, on 06/24/2020 at 142 PM. Diffuse mild hepatic steatosis. Signed by: Dr. Nash Dalton MD on 06/24/2020 1:50 PM
[2020-06-24] MEDS ORDERED: PIPER-TAZ 3.375 GM 50 ML IV ONE (14:00)
[2020-06-24] MEDS ORDERED: PIPER-TAZ 3.375 GM 50 ML ONE (14:48)
--- NOTE | 2020-06-24 15:09 | NUR ---
Called Aylin Morrow to initiate transfer
--- NOTE | 2020-06-24 16:06 | NUR ---
Surgeon needs extension to review chart.
--- NOTE | 2020-06-24 16:19 | NUR ---
Pt accepted at ER by Dr. Angel Salguero report [phone] fax face sheet and MOT to [phone] accepted by admin Donor Floor Technician Lynda Odom at [id number] to the ER
--- NOTE | 2020-06-24 18:23 | NUR ---
Pt tested negative for covid on May 02 and June 14 at [facility].
--- NOTE | 2020-06-24 18:43 | NUR ---
Report to Dominga Mitchell RN
== END 2020-06-24 18:35 | disposition short-term general hospital (02) ==
LOC: FSED 12:04
DX: K63.1 Perforation of intestine (nontraumatic) (principal); K52.9 Noninfective gastroenteritis and colitis, unspecified; Z98.84 Bariatric surgery status
CPT/HCPCS: 36415; 74177; 80048; 80053; 80076; 81003; 83690; 85025; 96374; 96375; 99284; C9113; J2270 ×2; J2405; J2543; J7030; Q9967

== ENCOUNTER 2022-05-13 11:41 | Inpatient (IN) | payer BC ==
[~2022-05-13] VITALS: Ht 175.3 cm; Wt 130.2 kg
[~2022-05-13 11:41] MED LIST changes: -FENTANYL CITRATE/PF 100MCG/2 ML INJ ONE; -MIDAZOLAM HCL 2 MG/2 ML VIAL ONE; +SODIUM CHLORIDE 0.9% 1000ML 1,000 ML IV SCH; +SODIUM CHLORIDE FLUSH 10 ML SYR IV PRN; -TRAMADOL HCL 50 MG TAB ONE
[2022-05-13] MEDS ORDERED: ONDANSETRON HCL INJ 2MG/ML 2ML 2 MG/ML VIAL IV STA (12:01)
[2022-05-13 12:15] LABS: BASOPHILS % 0.5 % (0.0-1.0); EOSINOPHILS # (AUTO) 0.1 (0.0-0.4); EOSINOPHILS % 2.3 % (0.0-6.0); HEMATOCRIT 35.8 % (38.2-49.6); HEMOGLOBIN 11.1 g/dL (14.0-18.0); LYMPHOCYTES # (AUTO) 1.2 (1.0-3.2); LYMPHOCYTES % 20.3 % (18.0-39.1); MEAN CORPUSCULAR HEMOGLOBIN 27.5 pg (28-32); MEAN CORPUSCULAR VOLUME 88.8 fL (81-99); MONOCYTES # (AUTO) 0.7 (0.2-0.8); MONOCYTES % 11.2 % (4.4-11.3); NEUTROPHILS % 65.2 % (38.7-80.0); PLATELET COUNT 205 x10e3/uL (140-360); RED BLOOD COUNT 4.03 x10e6/uL (4.3-5.7); RED CELL DISTRIBUTION WIDTH 15.4 % (11.7-14.4)
[2022-05-13 12:37] LABS: INR 0.87; PROTHROMBIN TIME 12.6 seconds (11.9-14.5)
[2022-05-13 12:38] LABS: PARTIAL THROMBOPLASTIN TIME 26.9 seconds (23.8-35.5)
[2022-05-13 12:44] LABS: ALBUMIN 3.4 g/dL (3.5-5.0); ALBUMIN/GLOBULIN RATIO 0.8 (0.8-2.0); CALCIUM 8.7 mg/dL (8.4-10.2); CREATININE, SERUM 0.81 mg/dL (0.72-1.25)
[2022-05-13] MEDS ORDERED: IOPAMIDOL 370 MG/ML 100 ML INFUS..BTL INJ ONE (13:37)
[2022-05-13 14:12] LABS: CLARITY,URINE CLEAR (CLEAR); COLOR,URINE AMBER (YELLOW); KETONES,URINE 1+ (NEGATIVE); LEUKOCYTE ESTERASE ,URINE NEGATIVE (NEGATIVE); NITRITE,URINE NEGATIVE (NEGATIVE); PROTEIN,URINE DIPSTICK NEGATIVE (NEGATIVE)
[2022-05-13 14:13] LABS: URINE UROBILINOGEN 1 mg/dL (0.2 - 1)
[2022-05-13 14:15] LABS: AMPHETAMINES SCREEN,URINE NEGATIVE (NEGATIVE); BACTERIA,URINE FEW /HPF; BENZODIAZEPINES SCREEN,URINE NEGATIVE (NEGATIVE); EPITHELIAL CELLS,URINE FEW /LPF; PHENCYCLIDINE SCREEN,URINE NEGATIVE (NEGATIVE); WBC,URINE (MAN) 0-5 /HPF (0-5)
[2022-05-13] MEDS ORDERED: Morphine 4mg INJECTION 4 MG/ML INJ IV PRN (16:15)
[2022-05-13] MEDS ORDERED: ONDANSETRON HCL INJ 2MG/ML 2ML 2 MG/ML VIAL IV PRN (16:15)
[2022-05-13] MEDS ORDERED: METRONIDAZOLE 500MG/NS 100ML 100 ML IV SCH (17:00)
[2022-05-13] MEDS: SODIUM CHLORIDE 0.9% 1000ML 1,000 ML IV SCH (17:18)
[2022-05-13] MEDS ORDERED: SODIUM CHLORIDE 0.9% 1000ML 1,000 ML ONE (17:35)
[2022-05-13] MEDS ORDERED: Vancomycin IV 1 GM in SODIUM CHLORIDE 0.9% 250ML 250 ML IV SCH (18:00)
[2022-05-13 20:00] VITALS: BP 165/84
[2022-05-13] MEDS: METRONIDAZOLE 500MG/NS 100ML 100 ML IV SCH (20:08)
[2022-05-13] MEDS: ACETAMINOPHEN 325 MG TAB PO PRN (20:45)
[2022-05-13 21:00] VITALS: BP 165/84
[2022-05-13] MEDS ORDERED: METOCLOPRAM5 MG/5 ML PO (21:18)
[2022-05-13 21:28] VITALS: BP 165/84
[2022-05-13 23:13] LABS: % IRON SATURATION 5 % (15-50); IRON 23 ug/dL (65-175); TOTAL IRON BINDING CAPACITY 466 ug/dL (261-478); TRANSFERRIN 333 mg/dL (174-364)
[2022-05-14] VITALS (8 sets, daily range): BP systolic 127–150; BP diastolic 70–86
[2022-05-14] MEDS: SODIUM CHLORIDE 0.9% 1000ML 1,000 ML IV SCH ×4 (00:15→22:51)
[2022-05-14] MEDS ORDERED: FOLIC ACID 1 MG TAB PO ONE (00:30)
[2022-05-14] MEDS: METRONIDAZOLE 500MG/NS 100ML 100 ML IV SCH ×3 (01:16→14:00)
[2022-05-14 06:18] LABS: BASOPHILS % 1.1 % (0.0-1.0); EOSINOPHILS # (AUTO) 0.2 (0.0-0.4); HEMATOCRIT 34.2 % (38.2-49.6); HEMOGLOBIN 10.5 g/dL (14.0-18.0); LYMPHOCYTES # (AUTO) 0.9 (1.0-3.2); LYMPHOCYTES % 24.5 % (18.0-39.1); MEAN CORPUSCULAR HEMOGLOBIN 27.2 pg (28-32); MEAN CORPUSCULAR HGB CONC 30.7 g/dL (31-35); MEAN CORPUSCULAR VOLUME 88.6 fL (81-99); MONOCYTES # (AUTO) 0.5 (0.2-0.8); MONOCYTES % 14.4 % (4.4-11.3); NEUTROPHILS % 53.5 % (38.7-80.0); PLATELET COUNT 174 x10e3/uL (140-360); RED BLOOD COUNT 3.86 x10e6/uL (4.3-5.7); RED CELL DISTRIBUTION WIDTH 15.4 % (11.7-14.4)
[2022-05-14 07:12] LABS: ALBUMIN 3.1 g/dL (3.5-5.0); ALBUMIN/GLOBULIN RATIO 0.8 (0.8-2.0); CALCIUM 8.6 mg/dL (8.4-10.2); CREATININE, SERUM 0.78 mg/dL (0.72-1.25)
[2022-05-14 07:36] LABS: MAGNESIUM 1.7 MG/DL (1.3-2.1)
[2022-05-14] MEDS: FOLIC ACID 1 MG TAB PO SCH (08:40)
[2022-05-14] MEDS: Vancomycin IV 1 GM in SODIUM CHLORIDE 0.9% 250ML 250 ML IV SCH ×2 (09:56→20:25)
[2022-05-14] MEDS: IRON SUCROSE 100 MG in SODIUM CHLORIDE 0.9% 100 ML 100 ML IV SCH (12:00)
[2022-05-14] MEDS: ACETAMINOPHEN 325 MG TAB PO PRN (14:32)
[2022-05-15] VITALS: BP_SYST 128; BP_SYST 131; BP_DIAS 68; BP_DIAS 80
[2022-05-15 04:00] VITALS: BP 128/80
[2022-05-15 06:11] LABS: BASOPHILS % 0.6 % (0.0-1.0); EOSINOPHILS # (AUTO) 0.2 (0.0-0.4); EOSINOPHILS % 5.5 % (0.0-6.0); HEMATOCRIT 35.1 % (38.2-49.6); HEMOGLOBIN 10.7 g/dL (14.0-18.0); LYMPHOCYTES # (AUTO) 1.1 (1.0-3.2); LYMPHOCYTES % 31.6 % (18.0-39.1); MEAN CORPUSCULAR HEMOGLOBIN 27.3 pg (28-32); MEAN CORPUSCULAR HGB CONC 30.5 g/dL (31-35); MEAN CORPUSCULAR VOLUME 89.5 fL (81-99); MONOCYTES # (AUTO) 0.4 (0.2-0.8); MONOCYTES % 12.8 % (4.4-11.3); NEUTROPHILS # (AUTO) 1.7 (2.1-6.9); NEUTROPHILS % 48.9 % (38.7-80.0); PLATELET COUNT 193 x10e3/uL (140-360); RED BLOOD COUNT 3.92 x10e6/uL (4.3-5.7); RED CELL DISTRIBUTION WIDTH 15.3 % (11.7-14.4)
[2022-05-15 06:35] LABS: ALBUMIN 3.1 g/dL (3.5-5.0); ALBUMIN/GLOBULIN RATIO 0.9 (0.8-2.0); ANION GAP 13.6 mmol/L (8-16); CALCIUM 8.4 mg/dL (8.4-10.2); CREATININE, SERUM 0.72 mg/dL (0.72-1.25); MAGNESIUM 1.9 MG/DL (1.3-2.1); POTASSIUM 4.6 mmol/L (3.5-5.1)
[2022-05-15] MEDS: Vancomycin IV 1 GM in SODIUM CHLORIDE 0.9% 250ML 250 ML IV SCH ×2 (08:00→21:36)
[2022-05-15 08:14] VITALS: BP 128/77
[2022-05-15] MEDS: SODIUM CHLORIDE 0.9% 1000ML 1,000 ML IV SCH ×3 (08:15→21:36)
[2022-05-15] MEDS: FOLIC ACID 1 MG TAB PO SCH (08:36)
[2022-05-15] MEDS: IRON SUCROSE 100 MG in SODIUM CHLORIDE 0.9% 100 ML 100 ML IV SCH (09:00)
[2022-05-15 12:12] VITALS: BP 128/71
[2022-05-15] MEDS: ACETAMINOPHEN 325 MG TAB PO PRN (14:15)
[2022-05-15 16:03] VITALS: BP 129/73
[2022-05-15 20:00] VITALS: BP 124/72
[2022-05-16] VITALS (8 sets, daily range): BP systolic 114–131; BP diastolic 64–86
[2022-05-16 06:23] LABS: BASOPHILS # (AUTO) 0.1 (0.0-0.1); BASOPHILS % 1.3 % (0.0-1.0); EOSINOPHILS # (AUTO) 0.2 (0.0-0.4); EOSINOPHILS % 4.1 % (0.0-6.0); HEMATOCRIT 37.6 % (38.2-49.6); HEMOGLOBIN 10.7 g/dL (14.0-18.0); LYMPHOCYTES # (AUTO) 1.5 (1.0-3.2); LYMPHOCYTES % 39.1 % (18.0-39.1); MEAN CORPUSCULAR HEMOGLOBIN 27.4 pg (28-32); MEAN CORPUSCULAR HGB CONC 28.5 g/dL (31-35); MEAN CORPUSCULAR VOLUME 96.2 fL (81-99); MONOCYTES # (AUTO) 0.5 (0.2-0.8); MONOCYTES % 12.9 % (4.4-11.3); NEUTROPHILS # (AUTO) 1.6 (2.1-6.9); NEUTROPHILS % 41.8 % (38.7-80.0); PLATELET COUNT 217 x10e3/uL (140-360); RED BLOOD COUNT 3.91 x10e6/uL (4.3-5.7); RED CELL DISTRIBUTION WIDTH 15.8 % (11.7-14.4)
[2022-05-16 06:42] LABS: ALBUMIN 2.8 g/dL (3.5-5.0); ALBUMIN/GLOBULIN RATIO 0.8 (0.8-2.0); ANION GAP 11.9 mmol/L (8-16); CALCIUM 7.9 mg/dL (8.4-10.2); CREATININE, SERUM 0.75 mg/dL (0.72-1.25); POTASSIUM 3.9 mmol/L (3.5-5.1)
[2022-05-16] MEDS: SODIUM CHLORIDE 0.9% 1000ML 1,000 ML IV SCH ×2 (08:44→18:42)
[2022-05-16] MEDS: Vancomycin IV 1 GM in SODIUM CHLORIDE 0.9% 250ML 250 ML IV SCH ×2 (08:44→20:00)
[2022-05-16] MEDS: FOLIC ACID 1 MG TAB PO SCH (08:45)
[2022-05-16] MEDS: IRON SUCROSE 100 MG in SODIUM CHLORIDE 0.9% 100 ML 100 ML IV SCH (09:00)
[2022-05-17] VITALS (8 sets, daily range): BP systolic 115–132; BP diastolic 58–88
[2022-05-17] MEDS: SODIUM CHLORIDE 0.9% 1000ML 1,000 ML IV SCH ×4 (00:15→16:48)
[2022-05-17 07:11] LABS: BASOPHILS % 0.9 % (0.0-1.0); EOSINOPHILS # (AUTO) 0.2 (0.0-0.4); EOSINOPHILS % 3.4 % (0.0-6.0); HEMATOCRIT 34.4 % (38.2-49.6); HEMOGLOBIN 10.6 g/dL (14.0-18.0); LYMPHOCYTES # (AUTO) 1.6 (1.0-3.2); LYMPHOCYTES % 35.9 % (18.0-39.1); MEAN CORPUSCULAR HEMOGLOBIN 27.4 pg (28-32); MEAN CORPUSCULAR HGB CONC 30.8 g/dL (31-35); MEAN CORPUSCULAR VOLUME 88.9 fL (81-99); MONOCYTES # (AUTO) 0.5 (0.2-0.8); MONOCYTES % 10.8 % (4.4-11.3); NEUTROPHILS # (AUTO) 2.1 (2.1-6.9); PLATELET COUNT 210 x10e3/uL (140-360); RED BLOOD COUNT 3.87 x10e6/uL (4.3-5.7); RED CELL DISTRIBUTION WIDTH 15.4 % (11.7-14.4)
[2022-05-17 07:53] LABS: ALBUMIN 2.8 g/dL (3.5-5.0); ALBUMIN/GLOBULIN RATIO 0.8 (0.8-2.0); ANION GAP 11.7 mmol/L (8-16); CALCIUM 7.8 mg/dL (8.4-10.2); CREATININE, SERUM 0.74 mg/dL (0.72-1.25); POTASSIUM 3.7 mmol/L (3.5-5.1)
[2022-05-17] MEDS: FOLIC ACID 1 MG TAB PO SCH (08:54)
[2022-05-17] MEDS ORDERED: Vancomycin IV 1 GM in SODIUM CHLORIDE 0.9% 250ML 250 ML IV SCH (09:00)
[2022-05-17] MEDS: IRON SUCROSE 100 MG in SODIUM CHLORIDE 0.9% 100 ML 100 ML IV SCH (09:27)
[2022-05-17] MEDS: MEROPENEM 1 GM in SODIUM CHLORIDE 0.9% 100 ML IV SCH ×2 (14:24→22:00)
[2022-05-17] MEDS: DAPTOMYCIN 500mg 10ML 500 MG in SODIUM CHLORIDE 0.9% 100 ML IV SCH (15:23)
[2022-05-18] VITALS (7 sets, daily range): BP systolic 114–122; BP diastolic 70–80
[2022-05-18] MEDS: MEROPENEM 1 GM in SODIUM CHLORIDE 0.9% 100 ML IV SCH ×3 (06:00→21:32)
[2022-05-18] MEDS: SODIUM CHLORIDE 0.9% 1000ML 1,000 ML IV SCH ×4 (06:34→23:29)
[2022-05-18] MEDS: IRON SUCROSE 100 MG in SODIUM CHLORIDE 0.9% 100 ML 100 ML IV SCH (09:10)
[2022-05-18] MEDS: FOLIC ACID 1 MG TAB PO SCH (09:10)
[2022-05-18] MEDS: ACETAMINOPHEN 325 MG TAB PO PRN (12:36)
[2022-05-18] MEDS: DAPTOMYCIN 500mg 10ML 500 MG in SODIUM CHLORIDE 0.9% 100 ML IV SCH (16:24)
[2022-05-19 04:52] VITALS: BP 111/73
[2022-05-19] MEDS: SODIUM CHLORIDE 0.9% 1000ML 1,000 ML IV SCH (05:37)
[2022-05-19] MEDS: MEROPENEM 1 GM in SODIUM CHLORIDE 0.9% 100 ML IV SCH ×2 (05:37→12:34)
[2022-05-19 08:16] VITALS: BP 114/78
[2022-05-19] MEDS: FOLIC ACID 1 MG TAB PO SCH (08:21)
[2022-05-19] MEDS: IRON SUCROSE 100 MG in SODIUM CHLORIDE 0.9% 100 ML 100 ML IV SCH (08:21)
[2022-05-19 09:00] VITALS: BP 114/78
[2022-05-19 12:07] VITALS: BP 141/83
[2022-05-19] MEDS: DAPTOMYCIN 500mg 10ML 500 MG in SODIUM CHLORIDE 0.9% 100 ML IV SCH (14:43)
== END 2022-05-19 16:11 | disposition home or self-care (01) | DRG 441 ==
LOC: ER 12:15 → ERHOLD 16:16 → MED/SURG3 18:32
PROVIDERS: ADMIT Internal Medicine; ATTEND Internal Medicine
PROC: 02HV33Z Insertion of Infusion Device into Superior Vena Cava, Percutaneous Approach (ICD-10-PCS; principal; 2022-05-17)
DX: K75.0 Abscess of liver (principal); K85.90 Acute pancreatitis without necrosis or infection, unspecified; Z68.41 Body mass index [BMI] 40.0-44.9, adult; E66.01 Morbid (severe) obesity due to excess calories; K21.9 Gastro-esophageal reflux disease without esophagitis; R13.10 Dysphagia, unspecified; D50.9 Iron deficiency anemia, unspecified; Z90.49 Acquired absence of other specified parts of digestive tract; Z98.84 Bariatric surgery status; Z82.49 Family history of ischemic heart disease and other diseases of the circulatory system; Z72.89 Other problems related to lifestyle; Z20.822 Contact with and (suspected) exposure to COVID-19
CPT/HCPCS: 36415; 36569; 71045; 74177; 80053; 80202; 80307; 81001; 82150; 82607; 82746; 83540; 83690; 83735; 84466; 85025; 85045; 85610; 85730; 86753; 93005; J1756; J2185; J2270; J2405; J2543; J3370; J7030; J7050; Q9967

== ENCOUNTER 2022-07-29 20:47 | Inpatient (IN) | payer BC ==
[~2022-07-29] VITALS: Ht 175.3 cm; Wt 137.9 kg
[~2022-07-29 20:47] MED LIST changes: +METOCLOPRAM5 MG/5 ML PO; -SODIUM CHLORIDE 0.9% 1000ML 1,000 ML IV SCH; -SODIUM CHLORIDE FLUSH 10 ML SYR IV PRN
[2022-07-29] MEDS ORDERED: ONDANSETRON HCL INJ 2MG/ML 2ML 2 MG/ML VIAL IV STA (21:02)
[2022-07-29 21:11] LABS: BASOPHILS % 0.4 % (0.0-1.0); EOSINOPHILS # (AUTO) 0.2 (0.0-0.4); EOSINOPHILS % 4.2 % (0.0-6.0); HEMOGLOBIN 13.1 g/dL (14.0-18.0); LYMPHOCYTES # (AUTO) 1.3 (1.0-3.2); MEAN CORPUSCULAR HEMOGLOBIN 29.4 pg (28-32); MEAN CORPUSCULAR HGB CONC 32.8 g/dL (31-35); MEAN CORPUSCULAR VOLUME 89.9 fL (81-99); MONOCYTES # (AUTO) 0.6 (0.2-0.8); MONOCYTES % 10.1 % (4.4-11.3); NEUTROPHILS # (AUTO) 3.4 (2.1-6.9); NEUTROPHILS % 61.7 % (38.7-80.0); PLATELET COUNT 218 x10e3/uL (140-360); RED BLOOD COUNT 4.45 x10e6/uL (4.3-5.7); RED CELL DISTRIBUTION WIDTH 14.6 % (11.7-14.4)
[2022-07-29 21:15] LABS: CLARITY,URINE SL CLOUDY (CLEAR); COLOR,URINE AMBER (YELLOW); KETONES,URINE NEGATIVE (NEGATIVE); LEUKOCYTE ESTERASE ,URINE NEGATIVE (NEGATIVE); NITRITE,URINE NEGATIVE (NEGATIVE); PROTEIN,URINE DIPSTICK TRACE (NEGATIVE); URINE UROBILINOGEN 1 mg/dL (0.2 - 1)
[2022-07-29] MEDS ORDERED: Morphine 4mg INJECTION 4 MG/ML INJ IV ONE (21:15)
[2022-07-29 21:22] LABS: BACTERIA,URINE MODERATE /HPF; EPITHELIAL CELLS,URINE FEW /LPF; RBC,URINE 0-5 /HPF (0-5); WBC,URINE (MAN) 0-5 /HPF (0-5)
[2022-07-29 21:34] LABS: ALANINE AMINOTRANSFERASE 922 IU/L (0-55); ALBUMIN 4.1 g/dL (3.5-5.0); ALBUMIN/GLOBULIN RATIO 1.2 (0.8-2.0); ALKALINE PHOSPHATASE 206 IU/L (40-150); ANION GAP 14.6 mmol/L (8-16); BLOOD UREA NITROGEN 12 mg/dL (7-26); BUN/CREATININE RATIO 15 (6-25); CALCIUM 8.8 mg/dL (8.4-10.2); CARBON DIOXIDE 27 mmol/L (22-29); CHLORIDE 101 mmol/L (98-107); CREATINE KINASE 95 IU/L (30-200); CREATININE, SERUM 0.82 mg/dL (0.72-1.25); GLUCOSE 145 mg/dL (74-118); POTASSIUM 3.6 mmol/L (3.5-5.1); SODIUM 139 mmol/L (136-145)
[2022-07-29] MEDS ORDERED: IOPAMIDOL 370 MG/ML 100 ML INFUS..BTL INJ ONE (22:02)
[2022-07-29 22:18] LABS: CHOL/HDL RATIO 2.2 (3.9-4.7)
[2022-07-29] MEDS ORDERED: ONDANSETRON HCL INJ 2MG/ML 2ML 2 MG/ML VIAL IV PRN (22:30)
[2022-07-29] MEDS: MEROPENEM 1 GM in SODIUM CHLORIDE 0.9% 100 ML IV SCH (23:16)
[2022-07-29] MEDS: SODIUM CHLORIDE 0.9% 1000ML 1,000 ML IV SCH (23:17)
[2022-07-30] VITALS (10 sets, daily range): BP systolic 113–138; BP diastolic 67–79
[2022-07-30] MEDS: Vancomycin IV 1 GM in SODIUM CHLORIDE 0.9% 250ML 250 ML IV SCH ×3 (00:34→21:28)
[2022-07-30] MEDS ORDERED: Tylenol#3 PO (04:50)
[2022-07-30] MEDS ORDERED: PROTONIX20 MG PO (04:50)
[2022-07-30 06:11] LABS: BASOPHILS % 0.3 % (0.0-1.0); EOSINOPHILS # (AUTO) 0.2 (0.0-0.4); EOSINOPHILS % 2.8 % (0.0-6.0); HEMATOCRIT 37.5 % (38.2-49.6); LYMPHOCYTES # (AUTO) 0.7 (1.0-3.2); MEAN CORPUSCULAR HEMOGLOBIN 28.6 pg (28-32); MEAN CORPUSCULAR VOLUME 89.3 fL (81-99); MONOCYTES # (AUTO) 0.7 (0.2-0.8); MONOCYTES % 11.5 % (4.4-11.3); NEUTROPHILS # (AUTO) 4.2 (2.1-6.9); NEUTROPHILS % 73.1 % (38.7-80.0); PLATELET COUNT 205 x10e3/uL (140-360); RED CELL DISTRIBUTION WIDTH 14.6 % (11.7-14.4)
[2022-07-30] MEDS: MEROPENEM 1 GM in SODIUM CHLORIDE 0.9% 100 ML IV SCH ×3 (06:15→21:25)
[2022-07-30] MEDS: SODIUM CHLORIDE 0.9% 1000ML 1,000 ML IV SCH ×2 (06:16→14:21)
[2022-07-30 06:40] LABS: ALBUMIN 3.6 g/dL (3.5-5.0); ANION GAP 13.8 mmol/L (8-16); CALCIUM 8.6 mg/dL (8.4-10.2); CREATININE, SERUM 0.67 mg/dL (0.72-1.25); POTASSIUM 3.8 mmol/L (3.5-5.1)
[2022-07-30] MEDS ORDERED: GADOBENATE DIMEGLUMINE 1 ML IV ONE (08:55)
[2022-07-30] MEDS ORDERED: SILVER SULFADIAZINE 50GM CREAM TOP SCH (11:00)
[2022-07-30] MEDS: Morphine 4mg INJECTION 4 MG/ML INJ IV PRN (11:46)
[2022-07-31 04:00] VITALS: BP 105/65
[2022-07-31 05:36] LABS: BASOPHILS % 0.6 % (0.0-1.0); EOSINOPHILS # (AUTO) 0.1 (0.0-0.4); EOSINOPHILS % 3.8 % (0.0-6.0); HEMATOCRIT 37.8 % (38.2-49.6); HEMOGLOBIN 12.3 g/dL (14.0-18.0); LYMPHOCYTES # (AUTO) 1.2 (1.0-3.2); LYMPHOCYTES % 34.7 % (18.0-39.1); MEAN CORPUSCULAR HEMOGLOBIN 28.5 pg (28-32); MEAN CORPUSCULAR HGB CONC 32.5 g/dL (31-35); MEAN CORPUSCULAR VOLUME 87.7 fL (81-99); MONOCYTES # (AUTO) 0.4 (0.2-0.8); MONOCYTES % 11.2 % (4.4-11.3); NEUTROPHILS # (AUTO) 1.7 (2.1-6.9); NEUTROPHILS % 49.1 % (38.7-80.0); PLATELET COUNT 178 x10e3/uL (140-360); RED BLOOD COUNT 4.31 x10e6/uL (4.3-5.7)
[2022-07-31 05:53] LABS: INR 0.85; PROTHROMBIN TIME 12.4 seconds (11.9-14.5)
[2022-07-31 06:02] LABS: ALBUMIN 3.1 g/dL (3.5-5.0); ALBUMIN/GLOBULIN RATIO 0.9 (0.8-2.0); ANION GAP 11.8 mmol/L (8-16); CALCIUM 8.3 mg/dL (8.4-10.2); CREATININE, SERUM 0.64 mg/dL (0.72-1.25); POTASSIUM 3.8 mmol/L (3.5-5.1)
[2022-07-31] MEDS: MEROPENEM 1 GM in SODIUM CHLORIDE 0.9% 100 ML IV SCH ×2 (06:10→13:20)
[2022-07-31] MEDS: SODIUM CHLORIDE 0.9% 1000ML 1,000 ML IV SCH ×3 (06:11→22:30)
[2022-07-31 07:17] LABS: HIV 1&2 AB SCREEN NON-REACTIVE (NONREACTIVE)
[2022-07-31 07:50] VITALS: BP 113/70
[2022-07-31 08:00] VITALS: BP 113/70
[2022-07-31] MEDS: SILVER SULFADIAZINE 50GM CREAM TOP SCH (09:22)
[2022-07-31] MEDS: Morphine 4mg INJECTION 4 MG/ML INJ IV PRN ×3 (09:40→22:36)
[2022-07-31] MEDS: Vancomycin IV 1 GM in SODIUM CHLORIDE 0.9% 250ML 250 ML IV SCH (11:00)
[2022-07-31 11:14] VITALS: BP 112/78
[2022-07-31] MEDS ORDERED: MIDAZOLAM HCL 2 MG/2 ML VIAL ONE (13:41)
[2022-07-31] MEDS ORDERED: FENTANYL CITRATE/PF 100MCG/2 ML INJ ONE (13:41)
[2022-07-31] MEDS ORDERED: SODIUM CHLORIDE 0.9% 250ML 250 ML ONE (13:44)
[2022-07-31] MEDS ORDERED: HYDROMORPHONE 1MG/1ML INJ ONE (15:05)
[2022-07-31 17:25] LABS: BODY FLUID APPEARANCE CLOUDY; BODY FLUID COLOR RED; WBC,BODY FLUID 1052 cells/uL
[2022-07-31 17:26] LABS: RBC,BODY FLUID 1615000 cells/uL
[2022-07-31 17:29] LABS: BODY FLUID TYPE OTHER
[2022-07-31 20:18] VITALS: BP 97/63
[2022-07-31] MEDS: Vancomycin IV 1.5 GM in SODIUM CHLORIDE 0.9% 250ML 300 ML IV SCH (20:56)
[2022-07-31 21:14] LABS: LYMPHOCYTES,BODY FLUID 22 %; MONO/MACROPHG,BODY FLUID 2 %; NEUTROPHILS,BODY FLUID 26 %
[2022-08-01] VITALS (11 sets, daily range): BP systolic 97–136; BP diastolic 58–82
[2022-08-01] MEDS: MEROPENEM 1 GM in SODIUM CHLORIDE 0.9% 100 ML IV SCH ×4 (00:35→20:54)
[2022-08-01] MEDS: Morphine 4mg INJECTION 4 MG/ML INJ IV PRN ×4 (04:18→20:49)
[2022-08-01 06:05] LABS: BASOPHILS % 0.7 % (0.0-1.0); EOSINOPHILS # (AUTO) 0.1 (0.0-0.4); EOSINOPHILS % 3.4 % (0.0-6.0); HEMATOCRIT 34.6 % (38.2-49.6); HEMOGLOBIN 11.2 g/dL (14.0-18.0); LYMPHOCYTES # (AUTO) 1.3 (1.0-3.2); LYMPHOCYTES % 31.4 % (18.0-39.1); MEAN CORPUSCULAR HGB CONC 32.4 g/dL (31-35); MEAN CORPUSCULAR VOLUME 89.6 fL (81-99); MONOCYTES # (AUTO) 0.4 (0.2-0.8); MONOCYTES % 8.9 % (4.4-11.3); NEUTROPHILS # (AUTO) 2.3 (2.1-6.9); NEUTROPHILS % 55.1 % (38.7-80.0); PLATELET COUNT 187 x10e3/uL (140-360); RED BLOOD COUNT 3.86 x10e6/uL (4.3-5.7); RED CELL DISTRIBUTION WIDTH 14.8 % (11.7-14.4)
[2022-08-01 06:30] LABS: ALBUMIN 3.1 g/dL (3.5-5.0); ANION GAP 11.9 mmol/L (8-16); CALCIUM 8.1 mg/dL (8.4-10.2); CREATININE, SERUM 0.64 mg/dL (0.72-1.25); MAGNESIUM 1.7 MG/DL (1.3-2.1); POTASSIUM 3.9 mmol/L (3.5-5.1)
[2022-08-01] MEDS: ONDANSETRON HCL 4 MG ORAL DISINTEGRATING TAB PO PRN (08:37)
[2022-08-01] MEDS: SILVER SULFADIAZINE 50GM CREAM TOP SCH (08:38)
[2022-08-01] MEDS: Vancomycin IV 1.5 GM in SODIUM CHLORIDE 0.9% 250ML 300 ML IV SCH ×2 (08:39→20:50)
[2022-08-01] MEDS: SODIUM CHLORIDE 0.9% 1000ML 1,000 ML IV SCH ×3 (08:41→22:30)
[2022-08-02] MEDS: Morphine 4mg INJECTION 4 MG/ML INJ IV PRN ×5 (00:33→23:13)
[2022-08-02 04:47] VITALS: BP 123/70
[2022-08-02] MEDS: MEROPENEM 1 GM in SODIUM CHLORIDE 0.9% 100 ML IV SCH (05:48)
[2022-08-02] MEDS: SODIUM CHLORIDE 0.9% 1000ML 1,000 ML IV SCH ×2 (06:29→13:02)
[2022-08-02 07:29] LABS: EOSINOPHILS # (AUTO) 0.1 (0.0-0.4); EOSINOPHILS % 3.4 % (0.0-6.0); HEMATOCRIT 34.8 % (38.2-49.6); HEMOGLOBIN 11.4 g/dL (14.0-18.0); LYMPHOCYTES # (AUTO) 1.5 (1.0-3.2); LYMPHOCYTES % 36.1 % (18.0-39.1); MEAN CORPUSCULAR HGB CONC 32.8 g/dL (31-35); MEAN CORPUSCULAR VOLUME 88.5 fL (81-99); MONOCYTES # (AUTO) 0.4 (0.2-0.8); MONOCYTES % 9.3 % (4.4-11.3); NEUTROPHILS % 49.5 % (38.7-80.0); PLATELET COUNT 213 x10e3/uL (140-360); RED BLOOD COUNT 3.93 x10e6/uL (4.3-5.7); RED CELL DISTRIBUTION WIDTH 14.8 % (11.7-14.4)
[2022-08-02 07:50] LABS: ALBUMIN 2.9 g/dL (3.5-5.0); ALBUMIN/GLOBULIN RATIO 0.8 (0.8-2.0); ANION GAP 12.1 mmol/L (8-16); CALCIUM 8.5 mg/dL (8.4-10.2); CREATININE, SERUM 0.65 mg/dL (0.72-1.25); POTASSIUM 4.1 mmol/L (3.5-5.1)
[2022-08-02] MEDS ORDERED: Vancomycin IV 1 GM VIAL ONE (08:16)
[2022-08-02 08:18] VITALS: BP 128/80
[2022-08-02] MEDS: Vancomycin IV 1.5 GM in SODIUM CHLORIDE 0.9% 250ML 300 ML IV SCH (08:22)
[2022-08-02] MEDS: SILVER SULFADIAZINE 50GM CREAM TOP SCH (08:23)
[2022-08-02 08:35] VITALS: BP 128/80
[2022-08-02 11:14] VITALS: BP 111/65
[2022-08-02] MEDS: CEFTRIAXONE 2 GM in SODIUM CHLORIDE 0.9% 100 ML IV SCH (12:15)
[2022-08-02 16:00] VITALS: BP 112/61
[2022-08-02 20:00] VITALS: BP 116/85
[2022-08-03] VITALS (7 sets, daily range): BP systolic 103–134; BP diastolic 63–78
[2022-08-03] MEDS: SODIUM CHLORIDE 0.9% 1000ML 1,000 ML IV SCH ×4 (00:16→21:06)
[2022-08-03] MEDS: Morphine 4mg INJECTION 4 MG/ML INJ IV PRN ×3 (08:16→21:16)
[2022-08-03] MEDS: SILVER SULFADIAZINE 50GM CREAM TOP SCH (08:24)
[2022-08-03] MEDS: CEFTRIAXONE 2 GM in SODIUM CHLORIDE 0.9% 100 ML IV SCH (11:29)
[2022-08-03] MEDS ORDERED: CEFTRIAXONE 2 GM in SODIUM CHLORIDE 0.9% 100 ML IV SCH (12:00)
[2022-08-03] MEDS: ONDANSETRON HCL 4 MG ORAL DISINTEGRATING TAB PO PRN (21:16)
[2022-08-04] VITALS (8 sets, daily range): BP systolic 101–129; BP diastolic 62–87
[2022-08-04] MEDS: ONDANSETRON HCL 4 MG ORAL DISINTEGRATING TAB PO PRN ×2 (05:34→21:29)
[2022-08-04] MEDS: SODIUM CHLORIDE 0.9% 1000ML 1,000 ML IV SCH ×3 (05:34→21:31)
[2022-08-04] MEDS: Morphine 4mg INJECTION 4 MG/ML INJ IV PRN ×4 (05:34→21:29)
[2022-08-04 07:04] LABS: BASOPHILS % 0.7 % (0.0-1.0); EOSINOPHILS # (AUTO) 0.1 (0.0-0.4); EOSINOPHILS % 3.1 % (0.0-6.0); HEMOGLOBIN 11.9 g/dL (14.0-18.0); LYMPHOCYTES # (AUTO) 1.7 (1.0-3.2); MEAN CORPUSCULAR HEMOGLOBIN 29.3 pg (28-32); MEAN CORPUSCULAR HGB CONC 33.1 g/dL (31-35); MEAN CORPUSCULAR VOLUME 88.7 fL (81-99); MONOCYTES # (AUTO) 0.4 (0.2-0.8); MONOCYTES % 9.7 % (4.4-11.3); NEUTROPHILS # (AUTO) 2.2 (2.1-6.9); NEUTROPHILS % 48.8 % (38.7-80.0); PLATELET COUNT 215 x10e3/uL (140-360); RED BLOOD COUNT 4.06 x10e6/uL (4.3-5.7); RED CELL DISTRIBUTION WIDTH 14.7 % (11.7-14.4)
[2022-08-04 07:31] LABS: ALBUMIN 3.3 g/dL (3.5-5.0); ALBUMIN/GLOBULIN RATIO 0.9 (0.8-2.0); ANION GAP 12.9 mmol/L (8-16); CALCIUM 8.7 mg/dL (8.4-10.2); CREATININE, SERUM 0.7 mg/dL (0.72-1.25); POTASSIUM 3.9 mmol/L (3.5-5.1)
[2022-08-04] MEDS: SILVER SULFADIAZINE 50GM CREAM TOP SCH (08:26)
[2022-08-04] MEDS: CEFTRIAXONE 2 GM in SODIUM CHLORIDE 0.9% 100 ML IV SCH (12:15)
[2022-08-05] VITALS (8 sets, daily range): BP systolic 100–125; BP diastolic 63–80
[2022-08-05] MEDS: Morphine 4mg INJECTION 4 MG/ML INJ IV PRN ×4 (05:11→18:26)
[2022-08-05] MEDS: ONDANSETRON HCL 4 MG ORAL DISINTEGRATING TAB PO PRN ×4 (05:11→18:26)
[2022-08-05] MEDS: SODIUM CHLORIDE 0.9% 1000ML 1,000 ML IV SCH ×2 (05:54→16:35)
[2022-08-05] MEDS: SILVER SULFADIAZINE 50GM CREAM TOP SCH (08:50)
[2022-08-05] MEDS: CEFTRIAXONE 2 GM in SODIUM CHLORIDE 0.9% 100 ML IV SCH (12:07)
[2022-08-06 01:12] VITALS: BP 101/71
[2022-08-06] MEDS: SODIUM CHLORIDE 0.9% 1000ML 1,000 ML IV SCH ×4 (01:19→22:30)
[2022-08-06 05:12] VITALS: BP 104/65
[2022-08-06 06:20] LABS: ALBUMIN 3.1 g/dL (3.5-5.0); ANION GAP 12.9 mmol/L (8-16); CALCIUM 8.3 mg/dL (8.4-10.2); CREATININE, SERUM 0.67 mg/dL (0.72-1.25); POTASSIUM 3.9 mmol/L (3.5-5.1)
[2022-08-06] MEDS: Morphine 4mg INJECTION 4 MG/ML INJ IV PRN ×3 (07:28→22:42)
[2022-08-06 07:31] LABS: BASOPHILS % 0.5 % (0.0-1.0); EOSINOPHILS # (AUTO) 0.2 (0.0-0.4); EOSINOPHILS % 2.7 % (0.0-6.0); HEMATOCRIT 35.1 % (38.2-49.6); HEMOGLOBIN 11.1 g/dL (14.0-18.0); LYMPHOCYTES # (AUTO) 1.6 (1.0-3.2); MEAN CORPUSCULAR HEMOGLOBIN 29.1 pg (28-32); MEAN CORPUSCULAR HGB CONC 31.6 g/dL (31-35); MEAN CORPUSCULAR VOLUME 92.1 fL (81-99); MONOCYTES # (AUTO) 0.5 (0.2-0.8); MONOCYTES % 9.3 % (4.4-11.3); NEUTROPHILS # (AUTO) 3.3 (2.1-6.9); PLATELET COUNT 221 x10e3/uL (140-360); RED BLOOD COUNT 3.81 x10e6/uL (4.3-5.7); RED CELL DISTRIBUTION WIDTH 14.6 % (11.7-14.4)
[2022-08-06] MEDS: SILVER SULFADIAZINE 50GM CREAM TOP SCH (09:00)
[2022-08-06 09:20] VITALS: BP_SYST 106; BP_SYST 115; BP_DIAS 70; BP_DIAS 80
[2022-08-06] MEDS ORDERED: IOPAMIDOL 370 MG/ML 100 ML INFUS..BTL INJ ONE (11:39)
[2022-08-06] MEDS: CEFTRIAXONE 2 GM in SODIUM CHLORIDE 0.9% 100 ML IV SCH (12:00)
[2022-08-06 12:57] VITALS: BP 116/78
[2022-08-06 17:32] VITALS: BP 115/74
[2022-08-06 20:11] VITALS: BP 119/84
[2022-08-06] MEDS: ONDANSETRON HCL 4 MG ORAL DISINTEGRATING TAB PO PRN (22:42)
[2022-08-07 01:25] VITALS: BP 113/82
[2022-08-07] MEDS: ONDANSETRON HCL 4 MG ORAL DISINTEGRATING TAB PO PRN (04:09)
[2022-08-07] MEDS: Morphine 4mg INJECTION 4 MG/ML INJ IV PRN ×2 (04:09→09:24)
[2022-08-07 05:14] VITALS: BP 120/82
[2022-08-07 08:06] VITALS: BP 110/65
[2022-08-07 08:08] VITALS: BP 110/65
[2022-08-07] MEDS ORDERED: SODIUM CHLORIDE 0.9% 1000ML 1,000 ML ONE (08:43)
[2022-08-07] MEDS: SODIUM CHLORIDE 0.9% 1000ML 1,000 ML IV SCH (09:12)
[2022-08-07 11:41] VITALS: BP 91/52
[2022-08-07] MEDS: CEFTRIAXONE 2 GM in SODIUM CHLORIDE 0.9% 100 ML IV SCH (12:45)
[2022-08-07 15:58] VITALS: BP 111/70
== END 2022-08-07 16:03 | disposition home or self-care (01) | DRG 442 ==
LOC: ER 20:52 → ERHOLD 22:33 → MED/SURG3 23:29
PROVIDERS: ADMIT Internal Medicine; ATTEND Internal Medicine
PROC: 0F9230Z Drainage of Left Lobe Liver with Drainage Device, Percutaneous Approach (ICD-10-PCS; 2022-07-31)
PROC: 02HV33Z Insertion of Infusion Device into Superior Vena Cava, Percutaneous Approach (ICD-10-PCS; principal; 2022-08-05)
DX: K75.0 Abscess of liver (principal); Z68.41 Body mass index [BMI] 40.0-44.9, adult; Z98.84 Bariatric surgery status; K21.9 Gastro-esophageal reflux disease without esophagitis; R79.89 Other specified abnormal findings of blood chemistry; D64.9 Anemia, unspecified; Z20.822 Contact with and (suspected) exposure to COVID-19; Z79.2 Long term (current) use of antibiotics; E66.09 Other obesity due to excess calories
CPT/HCPCS: 10030; 36415; 36569; 36584; 49405; 71045; 74177; 74183; 74470; 77012; 80053; 80061; 80202; 81001; 82550; 82553; 83690; 83735; 84484; 85025; 85610; 85730; 87040; 87070; 87102; 87116; 87205; 87206; 87390; 89051; 93005; 94799; 96360; 96361; 99251; 99284; C1729; G0433; G0435; J0696; J1170; J2185; J2250; J2270; J2405; J3010; J3370; J7030; J7050; Q0162; Q9967

== ENCOUNTER → 2022-08-19 | Outpatient (CLI) | payer BC ==
[~2022-08-19] MED LIST changes: +LIDOCAINE HCL 1% LOCAL INJ 20 ML VIAL ONE; +PROTONIX20 MG PO; +Tylenol#3 PO
== END ==
LOC: DX 10:39
PROVIDERS: ATTEND Surgery
DX: K75.0 Abscess of liver (principal)
CPT/HCPCS: 36589; J2001